=== PATIENT | female | born 1965 | race Caucasian/White ===

== ENCOUNTER 2016-12-19 05:34 | Emergency (ER) | payer MEDICAID ==
[2016-12-19] MEDS ORDERED: LEVALBUTEROL 1.25 MG INH ONE (05:41)
[2016-12-19] MEDS ORDERED: IPRATROPIUM 0.2 MG/ML NEB INH ONE (05:41)
--- NOTE | 2016-12-19 05:46 | ED Physician Documentation ---
PD HPI DYSPNEA - Stated complaint Stated Complaint: DIFF BREATHING - History obtained from History obtained from: Patient - History of Present Illness Timing - onset: How many days ago (2 months, but significantly worse past 2 days ) Timing - details: Intermittant, Waxing and waning Pain level max: 0 Pain level now: 0 Inciting event(s): URI Improved by: Rest Worsened by: Exertion, Coughing Associated symptoms: Cough, Wheezing. 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 HEENT: None Musculoskeletal: Osteoarthritis, Chronic back pain Derm: None - Past Surgical History Past Surgical History: Yes /NUCLEAR CHEMISTRY TECHNICIAN: Oophrectomy - Present Medications Home Medications: Ambulatory Orders Medication Instructions Recorded Confirmed Albuterol [Ventolin Hfa] 2 puffs IH Q4HR PRN 03/13/13 12/19/16 Albuterol Sulfate [Proair Hfa 2 puffs IH Q4HR PRN 12/19/16 12/19/16 Inhaler] Prednisone 40 mg PO DAILY 4 Days 12/19/16 - Allergies Allergies/Adverse Reactions: Allergies Allergy/AdvReac Type Severity Reaction Status Date / Time No Known Drug Allergies Allergy Verified 12/19/16 05:41 - Social History Does the pt smoke?: Yes Smoking Status: Current every day smoker Does the pt drink ETOH?: No Does the pt have substance abuse?: No - Immunizations Immunizations are current?: No Immunizations: TDAP >10years/unknown - POLST Patient has POLST: No PD ED PE NORMAL - Vitals Vital signs reviewed: Yes - General General: Alert and oriented X 3, Well developed/nourished, Other (mild-moderate respiratory distress (abbreviated sentences, accessory muscles, tachypneic)) - Cardiac Cardiac: No murmur, Other (regular rhythm, mildly tachycardic rate) - Extremities Extremities: No edema PD ED PE EXPANDED - Respiratory Respiratory: Wheezing, Decreased breath sounds Results - Vitals Vitals: Vital Signs - 24 hr 12/19/16 12/19/16 12/19/16 05:35 05:44 05:50 Temperature 36.8 C Heart Rate 106 H 92 101 H Respiratory 30 H 18 19 Rate Blood Pressure 155/98 H 139/82 H O2 Saturation 88 L 100 12/19/16 12/19/16 12/19/16 05:55 06:00 06:40 Temperature Heart Rate 90 98 82 Respiratory 21 20 21 Rate Blood Pressure 139/82 H 137/84 H 121/77 O2 Saturation 100 97 96 12/19/16 07:17 Temperature Heart Rate 90 Respiratory 18 Rate Blood Pressure 118/77 O2 Saturation 92 Oxygen O2 Source Room air Oxygen Flow Rate 2 - EKG (time done) No standard instances Rate: Rate (enter#) (103), Tachy Rhythm: Sinus tachycardia [place]: Normal Intervals: Normal [place] QRS: Normal Ischemia: Normal ST segments Other comments: Other comments (artifact noted in multiple leads) - Rads (name of study) chest xray Radiology: Prelim report reviewed, See rad report PD MEDICAL DECISION MAKING - ED course Complexity details: reviewed old records, reviewed results, re-evaluated patient , considered differential, d/w patient ED course: after first breathing treatment (xopenex X 3 doses, atrovent x 1 dose, all given in one treatment), reexam reveals improved aeration, persistent but slightly decreased wheezing (was throughout expiratory phase, now mid/end expiratory, and no longer with decreased breath sounds). Given duoneb, and on reevaluation, only end-expiratory wheezing heard with good aeration. She is lower 90s pulse ox on room air and is comfortable with discharge home. Given 60mg PO prednisone during ED stay, rx for 4 days prednisone 40mg QD. Departure - Departure Disposition: 01 Home, Self Care Clinical Impression: Asthma Condition: Good Instructions: ED Reactive Airway Disease Follow-Up: Shaquille Lamas MD [Primary Care Provider] - Within 3 Days Prescriptions: Prednisone 40 mg PO DAILY 4 Days Discharge Date/Time: 12/19/16 07:34
[2016-12-19] MEDS ORDERED: LEVALBUTEROL 1.25 MG INH STA (05:49)
[2016-12-19] MEDS ORDERED: IPRATROPIUM 0.2 MG/ML NEB INH STA (05:50)
[2016-12-19] MEDS ORDERED: predniSONE 20 MG TABLET PO STA (05:51)
[2016-12-19] MEDS ORDERED: predniSONE 20 MG TABLET ONE (05:58)
[2016-12-19] MEDS ORDERED: IPRATROPIUM/ALBUTEROL 3 ML NEB INH STA (06:33)
--- NOTE | 2016-12-19 06:38 | XRAY Preliminary Report ---
Exam: XR Chest 2 View PA/LAT IMPRESSION: Stable appearance of the chest without acute cardiopulmonary abnormality. [facility] SITE ID: [id number]
[2016-12-19] MEDS ORDERED: IPRATROPIUM/ALBUTEROL 3 ML NEB INH ONE (06:41)
--- NOTE | 2016-12-19 06:41 | XRAY Report ---
EXAM: CHEST RADIOGRAPHY EXAM DATE: 12/19/2016 06:21 AM. CLINICAL HISTORY: Dyspnea, cough. Shortness of breath for 2 days. COMPARISON: 03/27/2013. TECHNIQUE: 2 views. FINDINGS: Lungs/Pleura: No focal opacities evident. No pleural effusion. No pneumothorax. Normal volumes. Mediastinum: Heart and mediastinal contours are unremarkable. Other: Multilevel degenerative changes noted in the spine. IMPRESSION: Stable appearance of the chest without acute cardiopulmonary abnormality. [facility] Referring Provider Line: [phone] SITE ID: [id number]
[2016-12-19 07:18] VITALS: BP 118/77
== END 2016-12-19 07:34 | disposition home or self-care (01) ==
LOC: ED 05:34
DX: J45.909 Unspecified asthma, uncomplicated (principal); F17.200 Nicotine dependence, unspecified, uncomplicated
CPT/HCPCS: 71020; 93005; 93010; 94640; 94664; 99284; A9270; J7512; J7620

== ENCOUNTER 2017-03-28 21:56 | Emergency (ER) | payer MEDICAID ==
[2017-03-28 22:07] VITALS: BP 119/79
[2017-03-28] MEDS ORDERED: SULFAMETH/TRIMETH DS 800/160 MG TABLET PO STA (22:29)
[2017-03-28] MEDS ORDERED: cefTRIAXone 1 GM VIAL IM STA (22:29)
--- NOTE | 2017-03-28 22:32 | ED Physician Documentation ---
History of Present Illness - Stated complaint Stated Complaint: HAND PX - Chief complaint Chief Complaint: Ext Problem - History obtained from History obtained from: Patient - History of Present Illness Timing: How many days ago (4) Pain level max: 2 Pain level now: 1 - Additonal information Additional information: Patient states approximately 1 week ago she was working in the garden removing scrubs and noticed some few small puncture wounds to the hand, since that time she said she had been doing well, but the hand started to turn red yesterday and then had streaking up the arm today. Came in for evaluation. Nothing improves his symptoms. Nothing worsens the symptoms. 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 - Present Medications Home Medications: Ambulatory Orders Medication Instructions Recorded Confirmed Albuterol [Ventolin Hfa] 2 puffs IH Q4HR PRN 03/13/13 03/28/17 Albuterol Sulfate [Proair Hfa 2 puffs IH Q4HR PRN 12/19/16 03/28/17 Inhaler] Cephalexin [Keflex] 500 mg PO Q6H #28 capsule 03/28/17 Sulfamethox/Trimeth 800/160 1 each PO BID #14 tablet 03/28/17 [Bactrim Ds 800/160] - Allergies Allergies/Adverse Reactions: Allergies Allergy/AdvReac Type Severity Reaction Status Date / Time No Known Drug Allergies Allergy Verified 03/28/17 22:07 - Social History Does the pt smoke?: Yes Smoking Status: Current every day smoker Does the pt drink ETOH?: No Does the pt have substance abuse?: No - Immunizations Immunizations are current?: No Immunizations: TDAP >10years/unknown - POLST Patient has POLST: No PD ED PE NORMAL - Vitals Vital signs reviewed: Yes - General General: Alert and oriented X 3, No acute distress - Derm Derm: Warm and dry - Extremities Extremities: Other (R hand - Slight erythematous streak from the webspace between the thumb and index finger of the right hand to approximately two thirds of the distance of the right forearm. No abscess. No visible foreign bodies. No drainage. Neurovascularly intact) - Neuro Neuro: Alert and oriented X 3 - Psych Psych: Normal mood, Normal affect Results - Vitals Vitals: Vital Signs - 24 hr 03/28/17 22:04 Temperature 36.7 C Heart Rate 107 H Respiratory 16 Rate Blood Pressure 119/79 O2 Saturation 100 Oxygen O2 Source Room air PD MEDICAL DECISION MAKING - ED course Complexity details: considered differential, d/w patient ED course: Patient is a 51-year-old female with cellulitis of the right hand. Will place on antibiotics and see how she progresses. No evidence of foreign body. No drainable abscess. No fevers. Nontoxic. Well-appearing. Patient counseled regarding signs and symptoms for which I believe and urgent re-evaluation would be necessary. Patient with good understanding of and agreement to plan and is comfortable going home at this time This document was made in part using voice recognition software. While efforts are made to proofread this document, sound alike and grammatical errors may occur. Patient was given a dose of Rocephin here and placed on oral Bactrim here as well. Departure - Departure Disposition: 01 Home, Self Care Clinical Impression: Cellulitis Qualifiers: Site of cellulitis: extremity Site of cellulitis of extremity: upper extremity Laterality: right Qualified Code(s): L03.113 - Cellulitis of right upper limb Condition: Good Instructions: ED Infec Skin Cellulitis Follow-Up: Shaquille Lamas MD [Primary Care Provider] - Within 3 Days (for wound check ) Prescriptions: Sulfamethox/Trimeth 800/160 [Bactrim Ds 800/160] 1 each PO BID #14 tablet Cephalexin [Keflex] 500 mg PO Q6H #28 capsule Comments: Take all antibiotics until gone. Return if you worsen. Make sure to follow up with your doctor for repeat evaluation in 3 days. Discharge Date/Time: 03/28/17 22:46
[2017-03-28] MEDS ORDERED: cefTRIAXone 1 GM VIAL ONE (22:36)
[2017-03-28] MEDS ORDERED: SULFAMETH/TRIMETH DS 800/160 MG TABLET PO ONE (22:36)
[2017-03-28] MEDS ORDERED: LIDOCAINE 1% 2 ML VIAL ONE (22:36)
== END 2017-03-28 22:46 | disposition home or self-care (01) ==
LOC: ED 21:56
DX: L03.113 Cellulitis of right upper limb (principal); F17.200 Nicotine dependence, unspecified, uncomplicated
CPT/HCPCS: 96372; 99283; A9270

== ENCOUNTER 2017-12-09 05:36 | Inpatient (IN) | payer MEDICAID ==
[2017-12-09] MEDS ORDERED: IPRATROPIUM/ALBUTEROL 3 ML NEB INH STA (05:44)
[2017-12-09] MEDS ORDERED: methylPREDNISolone SUCCINATE 125 MG/2 ML VIAL IVP STA (05:44)
[2017-12-09] MEDS ORDERED: MAGNESIUM SULFATE 2 GRAM 2 GM/50 ML BAG IV ONE (05:44)
[2017-12-09] MEDS ORDERED: TERBUTALINE 1 MG/ML VIAL SUBQ STA (05:50)
[2017-12-09] MEDS ORDERED: IPRATROPIUM/ALBUTEROL 3 ML NEB INH ONE (05:53)
[2017-12-09] MEDS ORDERED: PROCHLORPERAZINE 10 MG/2 ML VIAL IVP PRN (05:55)
[2017-12-09] MEDS ORDERED: oxyCODONE 5 MG TABLET PO PRN (05:55)
[2017-12-09] MEDS ORDERED: ACETAMINOPHEN 325 MG TABLET PO PRN (05:55)
[2017-12-09] MEDS ORDERED: ZOLPIDEM 5 MG TABLET PO PRN (05:55)
[2017-12-09] MEDS ORDERED: ONDANSETRON 4 MG/2 ML VIAL IVP PRN (05:55)
[2017-12-09 06:06] LABS: BASOPHILS # (AUTO) 0.1 10^3/uL (0.0-0.1); BASOPHILS % (AUTO) 1.1 %; EOSINOPHILS # (AUTO) 0.3 10^3/uL (0.0-0.7); EOSINOPHILS % (AUTO) 2.8 %; HGB - HEMOGLOBIN 15.7 g/dL (12.0-16.0); LYMPHOCYTES # (AUTO) 3.8 10^3/uL (1.5-3.5); LYMPHOCYTES % (AUTO) 40.2 %; MEAN CORPUSCULAR HEMOGLOBIN 30.3 pg (27.0-31.0); MEAN CORPUSCULAR HGB CONC 32.5 g/dL (32.0-36.0); MEAN CORPUSCULAR VOLUME 93.1 fL (81.0-99.0); MONOCYTES # (AUTO) 0.7 10^3/uL (0.0-1.0); MONOCYTES % (AUTO) 7.9 %; NEUTROPHILS # (AUTO) 4.5 10^3/uL (1.5-6.6); PLT - PLATELET COUNT 398 10^3/uL (130-450); RED BLOOD COUNT 5.18 10^6/uL (4.20-5.40); RED CELL DISTRIBUTION WIDTH 13.2 % (12.0-15.0); WHITE BLOOD COUNT 9.4 x10^3/uL (4.8-10.8)
[2017-12-09 06:10] LABS: ALBUMIN 4.4 g/dL (3.2-5.5); ALBUMIN/GLOBULIN RATIO 1.3 (1.0-2.2); ALKALINE PHOSPHATASE 81 IU/L (42-121); ALT ALANINE AMINOTRANSFERASE 22 IU/L (10-60); AST ASPARTATE AMINOTRANSFERASE 22 IU/L (10-42); BILIRUBIN,TOTAL 1.2 mg/dL (0.2-1.0); BUN - BLOOD UREA NITROGEN 12 mg/dL (6-20); CALCIUM 8.8 mg/dL (8.5-10.3); CARBON DIOXIDE - CO2 28 mmol/L (21-32); CHLORIDE 100 mmol/L (101-111); CREATININE 0.8 mg/dL (0.4-1.0); GFR - MDRD 75 (>89); GLUCOSE 310 mg/dL (70-100); LIPASE 19 U/L (22-51); SODIUM 134 mmol/L (135-145); TOTAL PROTEIN 7.9 g/dL (6.7-8.2)
[2017-12-09] MEDS ORDERED: ALBUTEROL NEB 2.5 MG/3 ML INH STA (06:10)
--- NOTE | 2017-12-09 06:11 | ED Physician Documentation ---
PD HPI DYSPNEA - Stated complaint Stated Complaint: SHORTNESS OF BREATH - Chief complaint Chief Complaint: Resp - History obtained from History obtained from: Patient, Family - History of Present Illness Timing - onset: How many weeks ago (1) Timing - details: Gradual onset Inciting event(s): Allergic rxn/anaphylaxis Improved by: O2 Associated symptoms: Cough, Wheezing Similar symptoms before: Work up / diagnostics Recently seen: Not recently seen - Additional information Additional information: Patient is a 52 year old female presenting to the emergency department for severe shortness of breath. According to patient and family the patient has had worsening shortness of breath over the last week. Patient does smoke daily but every year around the same time she has a bad allergic reaction and makes her wheeze. patient does not have any nebulizers or inhalers at home. Upon initial evaluation in the emergency department patient was ill appearing in severe respiratory distress. 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: Oophrectomy - Present Medications Home Medications: Ambulatory Orders Medication Instructions Recorded Confirmed Albuterol [Ventolin Hfa] 2 puffs IH Q4HR PRN 03/13/13 03/28/17 Albuterol Sulfate [Proair Hfa 2 puffs IH Q4HR PRN 12/19/16 03/28/17 Inhaler] Cephalexin [Keflex] 500 mg PO Q6H #28 capsule 03/28/17 Sulfamethox/Trimeth 800/160 1 each PO BID #14 tablet 03/28/17 [Bactrim Ds 800/160] - Allergies Allergies/Adverse Reactions: Allergies Allergy/AdvReac Type Severity Reaction Status Date / Time No Known Drug Allergies Allergy Verified 03/28/17 22:07 - Social History Does the pt smoke?: Yes Smoking Status: Current every day smoker Does the pt drink ETOH?: No Does the pt have substance abuse?: No - Immunizations Immunizations are current?: No Immunizations: TDAP >10years/unknown - POLST Patient has POLST: No PD ED PE NORMAL - Abdomen Abdomen: Soft - Derm Derm: Normal color, No rash - Extremities Extremities: No edema, No calf tenderness / cord - Neuro Neuro: Alert and oriented X 3 Eye Opening: Spontaneous PD ED PE EXPANDED - General General: Alert, Disheveled, poorly kept, In distress - Neck Neck: No: JVD present - Cardiac Cardiac: Tachy - Respiratory Respiratory: Labored, Gasping, Accessory mm use, Retractions, Wheezing, Decreased breath sounds, Right upper lobe, Right middle lobe, Right lower lobe, Left upper lobe, Left lower lobe Results - Vitals Vitals: Vital Signs - 24 hr 12/09/17 12/09/17 05:40 05:55 Temperature 36.2 C L Heart Rate 129 H 128 H Respiratory 25 H Rate Blood Pressure 161/104 H O2 Saturation 70 L Oxygen O2 Source Room air Oxygen Flow Rate 10 - EKG (time done) 0644 Rate: Rate (enter#) (114) Rhythm: Sinus tachycardia [place]: Normal QRS: Low voltage Compare to prior EKG: Unchanged from prior EKG - Labs Labs: Laboratory Tests 12/09/17 12/09/17 12/09/17 05:45 05:45 05:45 WBC 9.4 RBC 5.18 Hgb 15.7 Hct 48.2 H MCV 93.1 MCH 30.3 MCHC 32.5 RDW 13.2 Plt Count 398 MPV 8.0 Neut # 4.5 Lymph # 3.8 H Mccreary # 0.7 Eos # 0.3 Baso # 0.1 Absolute Nucleated RBC 0.00 Nucleated RBC % 0.0 Sodium 134 L Potassium 4.6 Chloride 100 L Carbon Dioxide 28 Anion Gap 6.0 BUN 12 Creatinine 0.8 Estimated GFR (MDRD) 75 L Glucose 310 H Calcium 8.8 Total Bilirubin 1.2 H AST 22 ALT 22 Alkaline Phosphatase 81 Troponin I < 0.04 B-Natriuretic Peptide Total Protein 7.9 Albumin 4.4 Globulin 3.5 Albumin/Globulin Ratio 1.3 Lipase 19 L Ethyl Alcohol < 5.0 Influenza A (Rapid) Influenza B (Rapid) 12/09/17 12/09/17 05:45 05:53 WBC RBC Hgb Hct MCV MCH MCHC RDW Plt Count MPV Neut # Lymph # Mccreary # Eos # Baso # Absolute Nucleated RBC Nucleated RBC % Sodium Potassium Chloride Carbon Dioxide Anion Gap BUN Creatinine Estimated GFR (MDRD) Glucose Calcium Total Bilirubin AST ALT Alkaline Phosphatase Troponin I B-Natriuretic Peptide 18 Total Protein Albumin Globulin Albumin/Globulin Ratio Lipase Ethyl Alcohol Influenza A (Rapid) Negative Influenza B (Rapid) Negative - Rads (name of study) chest x-ray Radiology: Final report received (no acute disease process) PD MEDICAL DECISION MAKING - ED course Complexity details: reviewed old records, reviewed results, re-evaluated patient , considered differential, d/w patient, d/w family, d/w home care consultant ED course: Patient was seen immediately at bedside. Patient was placed on a monitor and was hypoxic in the 70s. patient was immediately started on 3 duonebs treatments. IV access was gained and labs were drawn. Patient was treated with solumedrol, magnesium and terbutaline. chest x-ray was performed and showed no acute abnormalities. Respiratory was contacted and patient was placed on bipap with inline nebs. Patient improved on the bipap. Hospitalist was contacted and he came to evaluate the patient. Patient was accepted by him and patient was admitted for further care. Departure - Departure Disposition: [facility] DC/Xfer Clinical Impression: Asthma, Respiratory failure Condition: Critical Discharge Date/Time: 12/09/17 06:59
--- NOTE | 2017-12-09 06:16 | XRAY Preliminary Report ---
Exam: XR CHEST 1 VIEW X-RAY IMPRESSION: Stable appearance of the chest without acute cardiopulmonary abnormality. [facility] SITE ID: [id number]
--- NOTE | 2017-12-09 06:16 | XRAY Report ---
EXAM: CHEST RADIOGRAPHY EXAM DATE: 12/09/2017 05:58 AM. CLINICAL HISTORY: Shortness of breath and wheezing COMPARISON: 12/19/2016, 03/27/2013. TECHNIQUE: 1 view. FINDINGS: Lungs/Pleura: No focal opacities evident. No pleural effusion. No pneumothorax. Mediastinum: Within exam limitations, the cardiomediastinal contour is normal. Other: None. IMPRESSION: Stable appearance of the chest without acute cardiopulmonary abnormality. [facility] Referring Provider Line: [phone] SITE ID: [id number]
--- NOTE | 2017-12-09 06:49 | HISTORY & PHYSICAL EXAMINATION ---
Chief Complaint - Chief Complaint Chief Complaint: Shortness of breath History of Present Illness - Admitted From Admitted From:: Emergency department - History Obtained From Records Reviewed: Yes History obtained from: Patient Exam Limitations: Patient on BiPAP and in respiratory distress - History of Present Illness HPI Comment/Other: Patient is a 52-year-old female with a past medical history significant for seasonal allergies and allergy induced asthma who presented to the emergency department with a chief complaint of shortness of breath. The patient states that her symptoms started about 1 week ago. She states that when the season changes around this time of the year she usually has asthma exacerbations which require her to come to the emergency department for treatment and usually she is released home after a few hours. She states that symptoms started with increasing shortness of air and she was having to use her inhaler more frequently. She states that she likes to be in the outdoors and has been spending a lot of time outside over the last week as the weather has been nice. She states that she had a couple of episodes over the last week where she felt that she almost had to go to the emergency department but decided against it. She states that she has been having wheezing and a dry cough along with increasing shortness of air. She states usually when she takes her inhaler she is able to get the breathing controlled to a point where she does not need to come to the emergency department. She states that over the last 2 nights it has been especially bad and tonight her shortness of breath was severe. She states that despite using a number of nebulizer treatments she could not catch her breath. She states that at rest she was unable to maintain a conversation. She states that initially she had wheezing and then she states that she just could not breathe. She denies any chest pain, palpitations, orthopnea, PND, increased lower extremity swelling, fevers or chills. The patient denies any headaches, blurred vision, runny nose, sore throat, nasal congestion, difficulty swallowing, abdominal pain, nausea, vomiting, diarrhea, constipation, urinary urgency, urinary frequency, dysuria, joint pain , muscle aches, back pain, neck stiffness, skin rash, hair loss, changes in her appetite, recent unintentional weight loss, night sweats, or any focal neurologic deficits. On presentation to the emergency department the patient was in severe respiratory distress. The patient came in by private vehicle with her boyfriend. As soon as she got into the emergency department she was very tachypneic and on the monitor she was found to have an oxygen saturation of 70% , she was tachycardic, hypertensive and very tachypneic. The patient was put onto BiPAP right away as she appeared as though she may need intubation. The patient was given back to back nebulizer treatments and IV steroids with which the patient began to stabilize. The patient was admitted to the intensive care unit for acute respiratory failure with hypoxia secondary to asthma exacerbation. The patient's lab work was all within normal limits. The patient had no leukocytosis and troponin was negative. Patient's BNP was 18. The patient's influenza swab was negative. The patient's chest x-ray did not show any evidence of pneumonia. History - Past Medical History Cardiovascular: reports: None Respiratory: reports: Asthma Endocrine/Autoimmune: reports: None GI: reports: Diverticulitis INORGANIC CHEMICAL TECHNICIAN: reports: None HEENT: reports: None Musculoskeletal: reports: Osteoarthritis, Chronic back pain Derm: reports: None MRSA Hx?: No Other Past Medical History: Gestational diabetes - Past Surgical History /INORGANIC CHEMICAL TECHNICIAN: reports: Oophrectomy - Family & Social History Family History: Mother: Alive and Well, Father: (Lung cancer), Cancer, Other family: Diabetes, Type 2 (Grandmother) Living arrangement: At home Living Situation: With spouse/s.o. Social History Notes: The patient lives in [place] with her boyfriend. She has 2 children. She is originally from [place] and moved up here a number of years ago. The patient continues to smoke half a pack a day she has been smoking since her teens. She does not drink alcohol or use any illicit drugs. - Substance History Use: Uses substance without health or social issues: Tobacco - POLST Patient has POLST: No POLST Status: Full Code Meds/Allgy - Home Medications Home Medications: Ambulatory Orders Medication Instructions Recorded Confirmed Albuterol [Ventolin Hfa] 2 puffs IH Q4HR PRN 03/13/13 03/28/17 Albuterol Sulfate [Proair Hfa 2 puffs IH Q4HR PRN 12/19/16 03/28/17 Inhaler] Cephalexin [Keflex] 500 mg PO Q6H #28 capsule 03/28/17 Sulfamethox/Trimeth 800/160 1 each PO BID #14 tablet 03/28/17 [Bactrim Ds 800/160] - Allergies Allergies/Adverse Reactions: Allergies Allergy/AdvReac Type Severity Reaction Status Date / Time No Known Drug Allergies Allergy Verified 03/28/17 22:07 Review of Systems - Other Findings Other Findings: A comprehensive review of systems was performed the pertinent positives and negatives are stated above in the HPI and the remainder of the review of systems is negative. Exam - Vital Signs Reviewed Vital Signs: Yes Vital Signs: Vital Signs x48h Pulse Resp BP Pulse Ox 12/09/17 06:40 122 H 12/09/17 06:34 121 H 28 H 137/81 H 97 12/09/17 06:00 128 H 22 155/86 H 98 - Physical Exam General Appearance: positive: Moderate distress (Patient on BiPAP has conversational dyspnea and using accessory muscles of breathing) Eyes Bilateral: positive: Normal inspection, PERRL, EOMI, No lid inflammation, Conjunctivae nml, No scleral icterus ENT: positive: ENT inspection nml, Pharynx nml, No signs of dehydration. negative: Purulent nasal drainage, Pharyngeal erythema, Oral lesions Neck: positive: Nml inspection, Thyroid nml, No JVD, Trachea midline. negative : Thyromegaly, Lymphadenopathy (R), Lymphadenopathy (L), Stiff neck, Carotid bruit, Tracheal deviation Respiratory: positive: Chest non-tender, Wheezes (Diffuse), Other (Decreased breath sounds, tight lungs, moderate respiratory distress, use of accessory muscles of breathing, conversational dyspnea) Cardiovascular: positive: No murmur, No gallop, Tachycardia Peripheral Pulses: positive: 2+ Abdomen: positive: Non-tender, No organomegaly, Nml bowel sounds, No distention. negative: Guarding, Rebound, Hepatomegaly Back: positive: Nml inspection. negative: CVA tenderness (R), CVA tenderness (L ) Skin: positive: Color nml, No rash, Warm. negative: Diaphoresis, Pallor, Skin rash Extremities: positive: Non-tender, Full ROM, Nml appearance, No pedal edema Neurologic/Psychiatric: positive: Oriented x3, CN's nml (2-12), Motor nml, Sensation nml, Mood/affect nml Conclusion/Plan - Problem List (1) Acute respiratory failure with hypoxia Conclusion/Plan: Patient presented with shortness of breath for about 1 week with a dry cough and wheezing. Patient's symptoms were progressively worsening over the week to a point where she had severe shortness of breath prior to presenting into the emergency department. On presentation the patient had hypoxia with oxygen saturation of 70% and was in severe respiratory distress. Patient has history of allergic asthma and appears to have asthma exacerbation which led to acute respiratory failure with hypoxia. Patient required BiPAP in the emergency department and is maintained on BiPAP and being admitted to the intensive care unit. Plan: Admit to the ICU BiPAP Nebs around the clock and as needed IV Solu-Medrol every 6 hours IV Levaquin Monitor closely (2) Asthma exacerbation Conclusion/Plan: Patient has history of allergic asthma. She usually has a bad exacerbation around this time of the year. Typically she does not require hospitalization and only requires a visit to the emergency department. This time patient's symptoms started about 1 week ago and has been progressively worsening. She finally came in today and was in severe respiratory distress requiring BiPAP in the emergency department. She had an oxygen saturation of only 70% on presentation. Plan: Nebs around the clock 24 hours Nebs as needed every 4 hours IV Solu-Medrol every 6 hours IV Levaquin BiPAP Wean off BiPAP Qualifiers: Asthma severity: unspecified severity Asthma persistence: intermittent Qualified Code(s): J45.21 - Mild intermittent asthma with (acute) exacerbation (3) Tobacco abuse Conclusion/Plan: Patient has history of tobacco abuse and smokes half a pack per day. Patient was advised to quit smoking and offered a nicotine patch. (4) Hyperglycemia Conclusion/Plan: The patient presents with significant hyperglycemia as she has a glucose of 300 on her blood chemistry. This may have been after she got a dose of IV steroids which may have caused the glucose to be significantly elevated. This is however of concern given the level of elevation in her blood glucose. We will check a hemoglobin A1c and continue to monitor her blood sugars. If her A1c is elevated we will place her on sliding scale insulin. The patient is going to be on steroids which may worsen her hyperglycemia. - Lab Results Lab results reviewed: Yes Fish Bones: 12/09/17 05:45 12/09/17 05:45 Other Lab Results: Laboratory Results WBC 9.4 x10^3/uL (4.8-10.8) 12/09/17 05:45 RBC 5.18 10^6/uL (4.20-5.40) 12/09/17 05:45 Hgb 15.7 g/dL (12.0-16.0) 12/09/17 05:45 Hct 48.2 % (37.0-47.0) H 12/09/17 05:45 MCV 93.1 fL (81.0-99.0) 12/09/17 05:45 MCH 30.3 pg (27.0-31.0) 12/09/17 05:45 MCHC 32.5 g/dL (32.0-36.0) 12/09/17 05:45 RDW 13.2 % (12.0-15.0) 12/09/17 05:45 Plt Count 398 10^3/uL (130-450) 12/09/17 05:45 MPV 8.0 fL (7.9-10.8) 12/09/17 05:45 Neut # 4.5 10^3/uL (1.5-6.6) 12/09/17 05:45 Lymph # 3.8 10^3/uL (1.5-3.5) H 12/09/17 05:45 Benson # 0.7 10^3/uL (0.0-1.0) 12/09/17 05:45 Eos # 0.3 10^3/uL (0.0-0.7) 12/09/17 05:45 Baso # 0.1 10^3/uL (0.0-0.1) 12/09/17 05:45 Absolute Nucleated RBC 0.00 x10^3/uL 12/09/17 05:45 Nucleated RBC % 0.0 /100WBC 12/09/17 05:45 Sodium 134 mmol/L (135-145) L 12/09/17 05:45 Potassium 4.6 mmol/L (3.5-5.0) 12/09/17 05:45 Chloride 100 mmol/L (101-111) L 12/09/17 05:45 Carbon Dioxide 28 mmol/L (21-32) 12/09/17 05:45 Anion Gap 6.0 (6-13) 12/09/17 05:45 BUN 12 mg/dL (6-20) 12/09/17 05:45 Creatinine 0.8 mg/dL (0.4-1.0) 12/09/17 05:45 Estimated GFR (MDRD) 75 (>89) L 12/09/17 05:45 Glucose 310 mg/dL (70-100) H 12/09/17 05:45 Calcium 8.8 mg/dL (8.5-10.3) 12/09/17 05:45 Total Bilirubin 1.2 mg/dL (0.2-1.0) H 12/09/17 05:45 AST 22 IU/L (10-42) 12/09/17 05:45 ALT 22 IU/L (10-60) 12/09/17 05:45 Alkaline Phosphatase 81 IU/L (42-121) 12/09/17 05:45 Troponin I < 0.04 ng/mL (<0.49) 12/09/17 05:45 B-Natriuretic Peptide 18 pg/mL (5-100) 12/09/17 05:45 Total Protein 7.9 g/dL (6.7-8.2) 12/09/17 05:45 Albumin 4.4 g/dL (3.2-5.5) 12/09/17 05:45 Globulin 3.5 g/dL (2.1-4.2) 12/09/17 05:45 Albumin/Globulin Ratio 1.3 (1.0-2.2) 12/09/17 05:45 Lipase 19 U/L (22-51) L 12/09/17 05:45 Ethyl Alcohol < 5.0 mg/dL 12/09/17 05:45 Influenza A (Rapid) Negative (Negative) 12/09/17 05:53 Influenza B (Rapid) Negative (Negative) 12/09/17 05:53 - Diagnostic Imaging Results Diagnostic Imaging Results: positive: Final report reviewed Diagnostic Imaging Results Comments: Chest x-ray Impression: Stable appearance of the chest without acute cardiopulmonary abnormality. Core Measures - Anticipated LOS I expect patient to be DC'd or transferred within 96 hours.: Yes - DVT/VTE - Prophylaxis VTE/DVT Prophylaxis med ordered at admit?: Yes
[2017-12-09 07:44] LABS: HB2 TOTAL 17.2 g/dL; HEMOGLOBIN A1C 0.77 g/dL; HEMOGLOBIN A1C % 6.2 % (4.6-6.2)
[2017-12-09] MEDS: methylPREDNISolone SUCCINATE 40 MG/ML VIAL IVP SCH ×3 (07:58→18:47)
[2017-12-09 08:45] LABS: ABG BASE EXCESS -2.7 mmol/L (-2.0-3.0); ABG HCO3 22.9 mmol/L (22.0-26.0); ABG OXYGEN SATURATION 99 % (94-98); ABG PCO2 43 mmHg (34-45); ABG PH 7.35 (7.35-7.45); ABG TCO2 24.3 MMOL/L (21.0-29.0)
[2017-12-09 08:49] LABS: ABG PO2 187 mmHg (80-100)
[2017-12-09] MEDS: FEXOFENADINE 60 MG TABLET PO SCH ×2 (10:01→10:06)
[2017-12-09] MEDS: ENOXAPARIN 40 MG/0.4 ML SYRINGE SUBQ SCH (10:01)
[2017-12-09] MEDS: CHLORHEXIDINE GLUCONATE 15 ML UDC PO SCH ×3 (10:01→21:45)
[2017-12-09] MEDS: PANTOPRAZOLE 40 MG VIAL IVP SCH (10:01)
[2017-12-09] MEDS: NICOTINE 14 MG PATCH TOP SCH ×2 (10:01→10:06)
[2017-12-09] MEDS: SACCHAROMYCES BOULARDII 250 MG CAPSULE PO SCH ×2 (10:01→17:22)
[2017-12-09] MEDS: levoFLOXacin 250 MG TABLET PO SCH (10:02)
[2017-12-09] MEDS: SODIUM CHLORIDE FLUSH 0.9% 10 ML SYRINGE IVP SCH ×3 (10:02→19:47)
[2017-12-09] MEDS: IPRATROPIUM/ALBUTEROL 3 ML NEB INH SCH ×3 (11:00→20:10)
[2017-12-09] MEDS: SODIUM CHLORIDE FLUSH 0.9% 10 ML SYRINGE IVP PRN ×2 (12:04→18:47)
[2017-12-09 17:14] LABS: BILIRUBIN,URINE NEGATIVE (NEGATIVE); CLARITY,URINE CLEAR (CLEAR); GLUCOSE, URINE (UA) NEGATIVE (NEGATIVE); KETONES,URINE (UA) NEGATIVE (NEGATIVE); LEUKOCYTE ESTERASE, URINE NEGATIVE (NEGATIVE); NITRITE,URINE NEGATIVE (NEGATIVE); OCCULT BLOOD,URINE NEGATIVE (NEGATIVE); PH,URINE 5.5 PH (5.0-7.5); PROTEIN,URINE NEGATIVE (NEGATIVE); UROBILINOGEN,URINE 0.2 (NORMAL) E.U./dL (NORMAL)
[2017-12-09] MEDS: guaiFENesin/CODEINE 5 ML UDC PO PRN (21:46)
[2017-12-10] MEDS: methylPREDNISolone SUCCINATE 40 MG/ML VIAL IVP SCH ×3 (00:04→12:18)
[2017-12-10] MEDS: IPRATROPIUM/ALBUTEROL 3 ML NEB INH SCH ×4 (00:04→19:15)
[2017-12-10] MEDS: SODIUM CHLORIDE FLUSH 0.9% 10 ML SYRINGE IVP SCH ×4 (00:04→17:06)
[2017-12-10 04:54] LABS: BASOPHILS % (AUTO) 0.1 %; HGB - HEMOGLOBIN 14.5 g/dL (12.0-16.0); LYMPHOCYTES % (AUTO) 7.6 %; MEAN CORPUSCULAR HEMOGLOBIN 30.1 pg (27.0-31.0); MEAN CORPUSCULAR HGB CONC 32.6 g/dL (32.0-36.0); MEAN CORPUSCULAR VOLUME 92.5 fL (81.0-99.0); MEAN PLATELET VOLUME 7.9 fL (7.9-10.8); MONOCYTES # (AUTO) 0.3 10^3/uL (0.0-1.0); MONOCYTES % (AUTO) 2.4 %; NEUTROPHILS # (AUTO) 12.2 10^3/uL (1.5-6.6); NEUTROPHILS % (AUTO) 89.9 %; PLT - PLATELET COUNT 358 10^3/uL (130-450); RED BLOOD COUNT 4.83 10^6/uL (4.20-5.40); WHITE BLOOD COUNT 13.5 x10^3/uL (4.8-10.8)
[2017-12-10 05:06] LABS: ALBUMIN 4.1 g/dL (3.2-5.5); ALBUMIN/GLOBULIN RATIO 1.2 (1.0-2.2); CALCIUM 9.2 mg/dL (8.5-10.3); CREATININE 0.7 mg/dL (0.4-1.0); MAGNESIUM 2.3 mg/dL (1.7-2.8); PHOSPHORUS 2.8 mg/dL (2.5-4.6); TOTAL PROTEIN 7.4 g/dL (6.7-8.2)
[2017-12-10] MEDS: PANTOPRAZOLE 40 MG VIAL IVP SCH (06:12)
[2017-12-10] MEDS: SODIUM CHLORIDE FLUSH 0.9% 10 ML SYRINGE IVP PRN ×5 (06:12→21:06)
[2017-12-10] MEDS: MORPHINE 2 MG/ML SYRINGE IVP PRN ×2 (06:30→14:58)
[2017-12-10] MEDS: LORazepam 2 MG/ML VIAL IVP PRN ×2 (06:49→10:38)
[2017-12-10] MEDS ORDERED: LORazepam 2 MG/ML VIAL ONE (06:51)
[2017-12-10 07:25] LABS: ABG BASE EXCESS -2.3 mmol/L (-2.0-3.0); ABG HCO3 23.5 mmol/L (22.0-26.0); ABG OXYGEN SATURATION 94 % (94-98); ABG PCO2 44 mmHg (34-45); ABG PH 7.34 (7.35-7.45); ABG PO2 73 mmHg (80-100); ABG TCO2 24.9 MMOL/L (21.0-29.0)
[2017-12-10] MEDS: FEXOFENADINE 60 MG TABLET PO SCH (09:56)
[2017-12-10] MEDS: CHLORHEXIDINE GLUCONATE 15 ML UDC PO SCH ×2 (09:56→20:08)
[2017-12-10] MEDS: levoFLOXacin 250 MG TABLET PO SCH (09:56)
[2017-12-10] MEDS: SACCHAROMYCES BOULARDII 250 MG CAPSULE PO SCH ×2 (09:56→17:21)
[2017-12-10] MEDS: ENOXAPARIN 40 MG/0.4 ML SYRINGE SUBQ SCH (09:58)
[2017-12-10] MEDS: NICOTINE 14 MG PATCH TOP SCH (09:59)
[2017-12-10] MEDS: IPRATROPIUM/ALBUTEROL 3 ML NEB INH PRN (10:32)
--- NOTE | 2017-12-10 14:47 | PROVIDER PROGRESS NOTE ---
Subjective - Prog Note Date Prog Note Date: 12/10/17 Prog Note Time: 14:44 - Subjective Pt reports feeling: Worse Subjective: I had seen her yesterday afternoon, and in the evening right before I left my 12 hour shift. BiPAP had come off, and she was sitting up in a chair eating her late lunch and dinner on both occasions. She was feeling better, even though she was still coughing a bit. This morning she got up to go to the bathroom, became increasingly short of breath with the effort, started coughing and developed severe shortness of breath and got put back on BiPAP. Over the course of the morning and into the afternoon she continues to have minimal reserve. Dyspnea on exertion and wheezing increase with minimal activity. Just to take off her mask to take her oral medications results in desaturation into the 70s. She is otherwise alert, has no new complaints. I spoke to her . He says that she usually gets really sick this time of year because of the Scotch broom and her allergies. She is usually seen in the emergency room, responds quickly to nebulizers and then can go home. This is the first time she has had to be admitted to the hospital for asthma. Current Medications - Current Medications Current Medications: Active Medications Acetaminophen (Tylenol) 650 mg PO Q4HR PRN PRN Reason: Pain 1 to 4 Albuterol/Ipratropium (Duoneb) 3 ml INH RTQ4H PRN PRN Reason: Wheezing Last Admin: 12/10/17 10:32 Dose: 3 ml Albuterol/Ipratropium (Duoneb) 3 ml INH RTQ6H [facility] Last Admin: 12/10/17 13:18 Dose: 3 ml Chlorhexidine Gluconate (Peridex) 15 ml PO BID [facility] Last Admin: 12/10/17 09:56 Dose: 15 ml Enoxaparin Sodium (Lovenox) 40 mg SUBQ DAILY [facility] Last Admin: 12/10/17 09:58 Dose: 40 mg Fexofenadine HCl (Tosin) 60 mg PO DAILY [facility] Last Admin: 12/10/17 09:56 Dose: 60 mg Guaifenesin/Codeine Phosphate (Robitussin Ac) 5 ml PO Q6HR PRN PRN Reason: Cough Last Admin: 12/09/17 21:46 Dose: 5 ml Levofloxacin (Levaquin) 750 mg PO DAILY [facility] Last Admin: 12/10/17 09:56 Dose: 750 mg Lorazepam (Ativan) 0.5 mg PO Q2HR PRN PRN Reason: Anxiety Lorazepam (Ativan Inj (Vial)) 0.5 mg IVP Q2H PRN PRN Reason: Anxiety Last Admin: 12/10/17 10:38 Dose: 0.5 mg Methylprednisolone (Solu-Medrol (40mg Vial)) 40 mg IVP Q6HR [facility] Last Admin: 12/10/17 12:18 Dose: 40 mg Morphine Sulfate (Morphine) 2 mg IVP Q2H PRN PRN Reason: Pain 8 to 10 Last Admin: 12/10/17 06:30 Dose: 2 mg Nicotine (Nicoderm) 1 patch TOP DAILY [facility] Last Admin: 12/10/17 09:59 Dose: Not Given Ondansetron HCl (Zofran Inj) 4 mg IVP Q6HR PRN PRN Reason: Nausea / Vomiting Oxycodone HCl (Roxicodone) 5 mg PO Q4HR PRN PRN Reason: Pain 5 to 7 Pantoprazole Sodium (Protonix) 40 mg IVP QDAC [facility] Last Admin: 12/10/17 06:12 Dose: 40 mg Prochlorperazine Edisylate (Compazine Inj) 10 mg IVP Q6HR PRN PRN Reason: Nausea / Vomiting Saccharomyces Boulardii (Florastor) 250 mg PO BIDWM [facility] Last Admin: 12/10/17 09:56 Dose: 250 mg Sodium Chloride (Normal Saline Flush 0.9%) 10 ml IVP 0100,0900,1700 [facility] Last Admin: 12/10/17 09:57 Dose: 10 ml Sodium Chloride (Normal Saline Flush 0.9%) 10 ml IVP PRN PRN PRN Reason: NEEDED PER PROVIDER ORDERS Last Admin: 12/10/17 10:39 Dose: 10 ml Zolpidem Tartrate (Ambien) 5 mg PO QPM PRN PRN Reason: Insomnia Albuterol Sulfate [Proair Hfa Inhaler] 1 puffs INH Q4H PRN 12/19/16 Albuterol 3 ml INH Q8H PRN 12/09/17 Objective - Vital Signs/Intake & Output Reviewed Vital Signs: Yes Vital Signs: Vital Signs Pulse Pulse Resp BP Pulse Ox 12/10/17 14:00 103 H 20 115/80 99 12/10/17 13:18 98 17 12/10/17 13:15 104 H 12/10/17 13:00 94 17 106/83 H 98 12/10/17 12:00 102 H 19 107/79 98 Intake & Output: Intake & Output 12/07/17 12/08/17 12/09/17 12/10/17 23:59 23:59 23:59 23:59 Intake Total 1150 680 Output Total 750 0 Balance 400 680 - Objective General Appearance: positive: Alert, Moderate distress ( from shortness of breath and coughing) Eyes Bilateral: positive: PERRL ENT: positive: Dry mucous membranes Neck: positive: No JVD. negative: Stiff neck, Carotid bruit Respiratory: positive: Chest non-tender, Wheezes (but almost silent otherwise. Wheezes are faint and at the end of exhalation. She is using increased rib cage muscles to move air). negative: Rales, Rhonchi Cardiovascular: positive: Regular rate & rhythm, Tachycardia (occasional). negative: Gallop/S4, Friction rub Abdomen: positive: Non-tender, No organomegaly, Nml bowel sounds, No distention Skin: positive: Warm, Dry Extremities: positive: Full ROM, No pedal edema Neurologic/Psychiatric: positive: Oriented x3, CN's nml (2-12), Motor nml - Lab Results Fish Bones: 12/10/17 04:20 12/10/17 04:20 Other Labs: Lab Results x24hrs 12/10/17 12/10/17 12/10/17 Range/Units 07:15 04:20 04:20 WBC 13.5 H (4.8-10.8) x10^3/uL RBC 4.83 (4.20-5.40) 10^6/uL Hgb 14.5 (12.0-16.0) g/dL Hct 44.7 (37.0-47.0) % MCV 92.5 (81.0-99.0) fL MCH 30.1 (27.0-31.0) pg MCHC 32.6 (32.0-36.0) g/dL RDW 13.0 (12.0-15.0) % Plt Count 358 (130-450) 10^3/uL MPV 7.9 (7.9-10.8) fL Neut # 12.2 H (1.5-6.6) 10^3/uL Lymph # 1.0 L (1.5-3.5) 10^3/uL [place] # 0.3 (0.0-1.0) 10^3/uL Eos # 0.0 (0.0-0.7) 10^3/uL Baso # 0.0 (0.0-0.1) 10^3/uL Absolute Nucleated RBC 0.00 x10^3/uL Nucleated RBC % 0.0 /100WBC Bld Gas Analysis Time 0715 Sample Site RIGHT RADIAL ABG pH 7.34 L (7.35-7.45) ABG pCO2 44 (34-45) mmHg ABG pO2 73 L (80-100) mmHg ABG HCO3 23.5 (22.0-26.0) mmol/L ABG Total CO2 24.9 (21.0-29.0) MMOL/L ABG O2 Saturation 94 (94-98) % ABG Oximetry Spot Check 95 % ABG Base Excess -2.3 L (-2.0-3.0) mmol/L Eric Test NOT APPLICABLE Respiration Rate 18 b/min O2 Delivery Device BiPAP Vent Mode SYNCHRONOUS/TIMES FiO2 40.00 Tidal Volume 672 mL EPAP 5 cmH2O IPAP 18 cmH2O Sodium 135 (135-145) mmol/L Potassium 4.7 (3.5-5.0) mmol/L Chloride 101 (101-111) mmol/L Carbon Dioxide 25 (21-32) mmol/L Anion Gap 9.0 (6-13) BUN 15 (6-20) mg/dL Creatinine 0.7 (0.4-1.0) mg/dL Estimated GFR (MDRD) 88 L (>89) Glucose 205 H (70-100) mg/dL Calcium 9.2 (8.5-10.3) mg/dL Phosphorus 2.8 (2.5-4.6) mg/dL Magnesium 2.3 (1.7-2.8) mg/dL Total Bilirubin 1.0 (0.2-1.0) mg/dL AST 17 (10-42) IU/L ALT 21 (10-60) IU/L Alkaline Phosphatase 68 (42-121) IU/L Total Protein 7.4 (6.7-8.2) g/dL Albumin 4.1 (3.2-5.5) g/dL Globulin 3.3 (2.1-4.2) g/dL Albumin/Globulin Ratio 1.2 (1.0-2.2) Urine Color Urine Clarity (CLEAR) Urine pH (5.0-7.5) PH Ur Specific [place] (1.002-1.030) Urine Protein (NEGATIVE) mg/dL Urine Glucose (UA) (NEGATIVE) mg/dL Urine Ketones (NEGATIVE) mg/dL Urine Occult Blood (NEGATIVE) Urine Nitrite (NEGATIVE) Urine Bilirubin (NEGATIVE) Urine Urobilinogen (NORMAL) E.U./dL Ur Leukocyte Esterase (NEGATIVE) Ur Microscopic Review Urine Culture Comments 12/09/17 Range/Units 16:45 WBC (4.8-10.8) x10^3/uL RBC (4.20-5.40) 10^6/uL Hgb (12.0-16.0) g/dL Hct (37.0-47.0) % MCV (81.0-99.0) fL MCH (27.0-31.0) pg MCHC (32.0-36.0) g/dL RDW (12.0-15.0) % Plt Count (130-450) 10^3/uL MPV (7.9-10.8) fL Neut # (1.5-6.6) 10^3/uL Lymph # (1.5-3.5) 10^3/uL [place] # (0.0-1.0) 10^3/uL Eos # (0.0-0.7) 10^3/uL Baso # (0.0-0.1) 10^3/uL Absolute Nucleated RBC x10^3/uL Nucleated RBC % /100WBC Bld Gas Analysis Time Sample Site ABG pH (7.35-7.45) ABG pCO2 (34-45) mmHg ABG pO2 (80-100) mmHg ABG HCO3 (22.0-26.0) mmol/L ABG Total CO2 (21.0-29.0) MMOL/L ABG O2 Saturation (94-98) % ABG Oximetry Spot Check % ABG Base Excess (-2.0-3.0) mmol/L Eric Test Respiration Rate b/min O2 Delivery Device Vent Mode FiO2 Tidal Volume mL EPAP cmH2O IPAP cmH2O Sodium (135-145) mmol/L Potassium (3.5-5.0) mmol/L Chloride (101-111) mmol/L Carbon Dioxide (21-32) mmol/L Anion Gap (6-13) BUN (6-20) mg/dL Creatinine (0.4-1.0) mg/dL Estimated GFR (MDRD) (>89) Glucose (70-100) mg/dL Calcium (8.5-10.3) mg/dL Phosphorus (2.5-4.6) mg/dL Magnesium (1.7-2.8) mg/dL Total Bilirubin (0.2-1.0) mg/dL AST (10-42) IU/L ALT (10-60) IU/L Alkaline Phosphatase (42-121) IU/L Total Protein (6.7-8.2) g/dL Albumin (3.2-5.5) g/dL Globulin (2.1-4.2) g/dL Albumin/Globulin Ratio (1.0-2.2) Urine Color YELLOW Urine Clarity CLEAR (CLEAR) Urine pH 5.5 (5.0-7.5) PH Ur Specific [place] >=1.030 H (1.002-1.030) Urine Protein NEGATIVE (NEGATIVE) mg/dL Urine Glucose (UA) NEGATIVE (NEGATIVE) mg/dL Urine Ketones NEGATIVE (NEGATIVE) mg/dL Urine Occult Blood NEGATIVE (NEGATIVE) Urine Nitrite NEGATIVE (NEGATIVE) Urine Bilirubin NEGATIVE (NEGATIVE) Urine Urobilinogen 0.2 (NORMAL) (NORMAL) E.U./dL Ur Leukocyte Esterase NEGATIVE (NEGATIVE) Ur Microscopic Review NOT INDICATED Urine Culture Comments NOT INDICATED Assessment/Plan - Problem List (1) Acute respiratory failure with hypoxia Impression: Patient presented with shortness of breath for about 1 week with a dry cough and wheezing. Patient's symptoms were progressively worsening over the week to a point where she had severe shortness of breath prior to presenting into the emergency department. On presentation the patient had hypoxia with oxygen saturation of 70% and was in severe respiratory distress. Patient has history of allergic asthma and appears to have asthma exacerbation which led to acute respiratory failure with hypoxia. Patient required BiPAP in the emergency department and was admitted to ICU with BiPAP. Able to come off after a few hours in the morning of 12/09 but by this am back again. Back to the beginning of controlling her cough, hypoxia. Plan: Stay in ICU BiPAP prn Nebs around the clock and as needed Continue IV Solu-Medrol every 6 hours Continue IV Levaquin Monitor closely Add theophylline (2) Asthma exacerbation Conclusion/Plan: Patient has history of allergic asthma. She usually has a bad exacerbation around this time of the year. Typically she does not require hospitalization and only requires a visit to the emergency department. This time patient's symptoms started about 1 week ago and has been progressively worsening. She finally came in today and was in severe respiratory distress requiring BiPAP in the emergency department. She had an oxygen saturation of only 70% on presentation. Plan: as above with- Nebs around the clock 24 hours Nebs as needed every 4 hours IV Solu-Medrol every 6 hours IV Levaquin BiPAP Qualifiers: Asthma severity: unspecified severity Asthma persistence: intermittent Qualified Code(s): J45.21 - Mild intermittent asthma with (acute) exacerbation (3) Tobacco abuse Conclusion/Plan: Patient has history of tobacco abuse and smokes half a pack per day. Patient was advised to quit smoking and offered a nicotine patch. She is on one now. (4) Hyperglycemia Conclusion/Plan: The patient presents with significant hyperglycemia as she has a glucose of 300 on her blood chemistry. This may have been after she got a dose of IV steroids which may have caused the glucose to be significantly elevated. This is however of concern given the level of elevation in her blood glucose. A1c was 6.2% yesterday so strong suspicion she has Type 2 DM, new diagnosis, and that the steroids we are giving her has made that worse. Continue
[2017-12-10] MEDS: guaiFENesin/CODEINE 5 ML UDC PO PRN ×2 (15:26→21:06)
[2017-12-10] MEDS: methylPREDNISolone SUCCINATE 125 MG/2 ML VIAL IVP SCH ×2 (16:12→21:06)
[2017-12-10] MEDS: LORazepam 0.5 MG TABLET PO PRN ×2 (17:15→21:06)
[2017-12-11] MEDS: IPRATROPIUM/ALBUTEROL 3 ML NEB INH SCH ×4 (02:16→22:03)
[2017-12-11 05:02] LABS: BASOPHILS % (AUTO) 0.1 %; HGB - HEMOGLOBIN 13.6 g/dL (12.0-16.0); LYMPHOCYTES # (AUTO) 0.9 10^3/uL (1.5-3.5); LYMPHOCYTES % (AUTO) 5.1 %; MEAN CORPUSCULAR HEMOGLOBIN 29.6 pg (27.0-31.0); MEAN CORPUSCULAR HGB CONC 31.8 g/dL (32.0-36.0); MEAN CORPUSCULAR VOLUME 92.9 fL (81.0-99.0); MEAN PLATELET VOLUME 8.2 fL (7.9-10.8); MONOCYTES # (AUTO) 0.6 10^3/uL (0.0-1.0); MONOCYTES % (AUTO) 3.4 %; NEUTROPHILS # (AUTO) 16.4 10^3/uL (1.5-6.6); NEUTROPHILS % (AUTO) 91.4 %; PLT - PLATELET COUNT 310 10^3/uL (130-450); RED BLOOD COUNT 4.61 10^6/uL (4.20-5.40); WHITE BLOOD COUNT 17.9 x10^3/uL (4.8-10.8)
[2017-12-11] MEDS: methylPREDNISolone SUCCINATE 125 MG/2 ML VIAL IVP SCH ×4 (05:08→21:43)
[2017-12-11] MEDS: PANTOPRAZOLE 40 MG VIAL IVP SCH (05:08)
[2017-12-11] MEDS: SODIUM CHLORIDE FLUSH 0.9% 10 ML SYRINGE IVP SCH ×4 (05:08→21:44)
[2017-12-11] MEDS: guaiFENesin/CODEINE 5 ML UDC PO PRN ×3 (05:08→18:10)
[2017-12-11] MEDS: IPRATROPIUM/ALBUTEROL 3 ML NEB INH PRN (05:11)
[2017-12-11 05:12] LABS: ALBUMIN 3.9 g/dL (3.2-5.5); ALBUMIN/GLOBULIN RATIO 1.2 (1.0-2.2); BILIRUBIN,TOTAL 0.6 mg/dL (0.2-1.0); CALCIUM 9.1 mg/dL (8.5-10.3); CREATININE 0.7 mg/dL (0.4-1.0); MAGNESIUM 2.5 mg/dL (1.7-2.8); TOTAL PROTEIN 7.1 g/dL (6.7-8.2)
[2017-12-11] MEDS: ENOXAPARIN 40 MG/0.4 ML SYRINGE SUBQ SCH (08:23)
[2017-12-11] MEDS: LORazepam 2 MG/ML VIAL IVP PRN (08:28)
[2017-12-11] MEDS: SACCHAROMYCES BOULARDII 250 MG CAPSULE PO SCH ×2 (08:51→17:41)
[2017-12-11] MEDS: NICOTINE 14 MG PATCH TOP SCH (08:52)
[2017-12-11] MEDS: FEXOFENADINE 60 MG TABLET PO SCH (08:52)
[2017-12-11] MEDS: levoFLOXacin 250 MG TABLET PO SCH (08:52)
[2017-12-11] MEDS: LORazepam 0.5 MG TABLET PO PRN ×3 (11:06→21:44)
[2017-12-11] MEDS: CHLORHEXIDINE GLUCONATE 15 ML UDC PO SCH ×2 (11:06→21:43)
[2017-12-11] MEDS: SODIUM CHLORIDE FLUSH 0.9% 10 ML SYRINGE IVP PRN (16:06)
--- NOTE | 2017-12-11 18:48 | PROVIDER PROGRESS NOTE ---
Subjective - Prog Note Date Prog Note Date: 12/11/17 Prog Note Time: 18:44 - Subjective Subjective: she has not needed BiPAP since yesterday late morning. Has been on high flow humdified O2 and stable. still has spasms of wheezing, coughing, and oc O2 sat drops to 90% but overall improving slowly from yesterday Current Medications - Current Medications Current Medications: Active Medications Acetaminophen (Tylenol) 650 mg PO Q4HR PRN PRN Reason: Pain 1 to 4 Albuterol/Ipratropium (Duoneb) 3 ml INH RTQ4H PRN PRN Reason: Wheezing Last Admin: 12/11/17 05:11 Dose: 3 ml Albuterol/Ipratropium (Duoneb) 3 ml INH RTQ6H [facility] Last Admin: 12/11/17 15:45 Dose: 3 ml Chlorhexidine Gluconate (Peridex) 15 ml PO BID [facility] Last Admin: 12/11/17 11:06 Dose: 15 ml Enoxaparin Sodium (Lovenox) 40 mg SUBQ DAILY [facility] Last Admin: 12/11/17 08:23 Dose: 40 mg Fexofenadine HCl (Tosin) 60 mg PO DAILY [facility] Last Admin: 12/11/17 08:52 Dose: 60 mg Guaifenesin/Codeine Phosphate (Robitussin Ac) 5 ml PO Q6HR PRN PRN Reason: Cough Last Admin: 12/11/17 18:10 Dose: 5 ml Levofloxacin (Levaquin) 750 mg PO DAILY [facility] Last Admin: 12/11/17 08:52 Dose: 750 mg Lorazepam (Ativan) 0.5 mg PO Q2HR PRN PRN Reason: Anxiety Last Admin: 12/11/17 16:00 Dose: 0.5 mg Lorazepam (Ativan Inj (Vial)) 0.5 mg IVP Q2H PRN PRN Reason: Anxiety Last Admin: 12/11/17 08:28 Dose: 0.5 mg Methylprednisolone Sodium Succinate (Solu-Medrol (125mg Vial)) 125 mg IVP Q6H [facility] Last Admin: 12/11/17 16:06 Dose: 125 mg Morphine Sulfate (Morphine) 2 mg IVP Q2H PRN PRN Reason: Pain 8 to 10 Last Admin: 12/10/17 14:58 Dose: 2 mg Nicotine (Nicoderm) 1 patch TOP DAILY [facility] Last Admin: 12/11/17 08:52 Dose: Not Given Ondansetron HCl (Zofran Inj) 4 mg IVP Q6HR PRN PRN Reason: Nausea / Vomiting Oxycodone HCl (Roxicodone) 5 mg PO Q4HR PRN PRN Reason: Pain 5 to 7 Pantoprazole Sodium (Protonix) 40 mg IVP QDAC [facility] Last Admin: 12/11/17 05:08 Dose: 40 mg Prochlorperazine Edisylate (Compazine Inj) 10 mg IVP Q6HR PRN PRN Reason: Nausea / Vomiting Saccharomyces Boulardii (Florastor) 250 mg PO BIDWM [facility] Last Admin: 12/11/17 17:41 Dose: 250 mg Sodium Chloride (Normal Saline Flush 0.9%) 10 ml IVP 0100,0900,1700 [facility] Last Admin: 12/11/17 17:42 Dose: 10 ml Sodium Chloride (Normal Saline Flush 0.9%) 10 ml IVP PRN PRN PRN Reason: NEEDED PER PROVIDER ORDERS Last Admin: 12/11/17 16:06 Dose: 10 ml Zolpidem Tartrate (Ambien) 5 mg PO QPM PRN PRN Reason: Insomnia Albuterol Sulfate [Proair Hfa Inhaler] 1 puffs INH Q4H PRN 12/19/16 Albuterol 3 ml INH Q8H PRN 12/09/17 Objective - Vital Signs/Intake & Output Vital Signs: Vital Signs Temp Pulse Pulse Resp BP Pulse Ox 12/11/17 18:00 102 H 14 121/80 96 12/11/17 17:00 20 L 20 128/77 97 12/11/17 16:00 37.2 C 96 17 119/81 H 94 12/11/17 15:45 98 13 12/11/17 15:00 108 H 13 113/75 93 Intake & Output: Intake & Output 12/08/17 12/09/17 12/10/17 12/11/17 23:59 23:59 23:59 23:59 Intake Total 1150 2230 1005 Output Total 750 1000 800 Balance 400 1230 205 - Objective General Appearance: positive: No acute distress, Lethargic Eyes Bilateral: positive: PERRL, EOMI ENT: positive: Pharynx nml Neck: positive: No JVD. negative: Stiff neck, Carotid bruit Respiratory: positive: Chest non-tender, Other (I have examined her twice and today she has either very quiet lungs with faint end exhalation wheezing and very poor breath sounds or loud wheezing with cough. No use of accessory muscles. No struggling.) Cardiovascular: positive: Regular rate & rhythm. negative: Gallop/S4, Friction rub Abdomen: positive: Non-tender, No organomegaly, Nml bowel sounds, No distention , Other (she does eat her food but does drop her sats with that) Skin: positive: Warm, Dry Extremities: positive: Full ROM, No pedal edema Neurologic/Psychiatric: positive: Oriented x3, CN's nml (2-12), Motor nml - Lab Results Fish Bones: 12/11/17 04:35 12/11/17 04:35 Other Labs: Lab Results x24hrs 12/11/17 12/11/17 Range/Units 04:35 04:35 WBC 17.9 H (4.8-10.8) x10^3/uL RBC 4.61 (4.20-5.40) 10^6/uL Hgb 13.6 (12.0-16.0) g/dL Hct 42.9 (37.0-47.0) % MCV 92.9 (81.0-99.0) fL MCH 29.6 (27.0-31.0) pg MCHC 31.8 L (32.0-36.0) g/dL RDW 13.0 (12.0-15.0) % Plt Count 310 (130-450) 10^3/uL MPV 8.2 (7.9-10.8) fL Neut # 16.4 H (1.5-6.6) 10^3/uL Lymph # 0.9 L (1.5-3.5) 10^3/uL [place] # 0.6 (0.0-1.0) 10^3/uL Eos # 0.0 (0.0-0.7) 10^3/uL Baso # 0.0 (0.0-0.1) 10^3/uL Absolute Nucleated RBC 0.00 x10^3/uL Nucleated RBC % 0.0 /100WBC Sodium 134 L (135-145) mmol/L Potassium 4.6 (3.5-5.0) mmol/L Chloride 98 L (101-111) mmol/L Carbon Dioxide 27 (21-32) mmol/L Anion Gap 9.0 (6-13) BUN 22 H (6-20) mg/dL Creatinine 0.7 (0.4-1.0) mg/dL Estimated GFR (MDRD) 88 L (>89) Glucose 210 H (70-100) mg/dL Calcium 9.1 (8.5-10.3) mg/dL Phosphorus 3.0 (2.5-4.6) mg/dL Magnesium 2.5 (1.7-2.8) mg/dL Total Bilirubin 0.6 (0.2-1.0) mg/dL AST 20 (10-42) IU/L ALT 20 (10-60) IU/L Alkaline Phosphatase 59 (42-121) IU/L Total Protein 7.1 (6.7-8.2) g/dL Albumin 3.9 (3.2-5.5) g/dL Globulin 3.2 (2.1-4.2) g/dL Albumin/Globulin Ratio 1.2 (1.0-2.2) Assessment/Plan - Problem List (1) Acute respiratory failure with hypoxia Impression: Patient presented with shortness of breath for about 1 week with a dry cough and wheezing. Patient's symptoms were progressively worsening over the week to a point where she had severe shortness of breath prior to presenting into the emergency department. On presentation the patient had hypoxia with oxygen saturation of 70% and was in severe respiratory distress. Patient has history of allergic asthma and appears to have asthma exacerbation which led to acute respiratory failure with hypoxia. Patient required BiPAP in the emergency department and was admitted to ICU with BiPAP. Able to come off after a few hours in the morning of 12/09 but by 12/10 back on it again. Able to come off it by early afternoon, late morning of 12/10 and on high flow O2 now. Tenuous stability and cough or eating drop her sats. Plan: Stay in ICU BiPAP prn Nebs around the clock and as needed Continue IV Solu-Medrol every 6 hours Continue IV Levaquin Monitor closely Thought to Add theophylline but I decided not to she is slowly but not tremendously improved. (2) Asthma exacerbation Conclusion/Plan: Patient has history of allergic asthma. She usually has a bad exacerbation around this time of the year. Typically she does not require hospitalization and only requires a visit to the emergency department. This time patient's symptoms started about 1 week ago and has been progressively worsening. She finally came in today and was in severe respiratory distress requiring BiPAP in the emergency department. She had an oxygen saturation of only 70% on presentation. Plan: as above with- Nebs around the clock 24 hours Nebs as needed every 4 hours IV Solu-Medrol every 6 hours IV Levaquin BiPAP Qualifiers: Asthma severity: unspecified severity Asthma persistence: intermittent Qualified Code(s): J45.21 - Mild intermittent asthma with (acute) exacerbation (3) Tobacco abuse Conclusion/Plan: Patient has history of tobacco abuse and smokes half a pack per day. Patient was advised to quit smoking and offered a nicotine patch. She is on one now. (4) Hyperglycemia Conclusion/Plan: The patient presents with significant hyperglycemia as she has a glucose of 300 on her blood chemistry. This may have been after she got a dose of IV steroids which may have caused the glucose to be significantly elevated. This is however of concern given the level of elevation in her blood glucose. A1c was 6.2% 12/09 so strong suspicion she has Type 2 DM, new diagnosis, and that the steroids we are giving her has made that worse. Continue SS insulin
[2017-12-12] MEDS: guaiFENesin/CODEINE 5 ML UDC PO PRN ×2 (04:30→13:27)
[2017-12-12] MEDS: methylPREDNISolone SUCCINATE 125 MG/2 ML VIAL IVP SCH ×4 (04:30→22:15)
[2017-12-12] MEDS: IPRATROPIUM/ALBUTEROL 3 ML NEB INH SCH ×3 (04:37→22:18)
[2017-12-12] MEDS: LORazepam 2 MG/ML VIAL IVP PRN ×2 (04:51→16:00)
[2017-12-12 05:40] LABS: HGB - HEMOGLOBIN 13.9 g/dL (12.0-16.0); LYMPHOCYTES # (AUTO) 0.9 10^3/uL (1.5-3.5); LYMPHOCYTES % (AUTO) 5.7 %; MEAN CORPUSCULAR HGB CONC 32.7 g/dL (32.0-36.0); MEAN CORPUSCULAR VOLUME 91.8 fL (81.0-99.0); MEAN PLATELET VOLUME 8.1 fL (7.9-10.8); MONOCYTES # (AUTO) 0.4 10^3/uL (0.0-1.0); MONOCYTES % (AUTO) 2.6 %; NEUTROPHILS # (AUTO) 14.3 10^3/uL (1.5-6.6); NEUTROPHILS % (AUTO) 91.7 %; PLT - PLATELET COUNT 328 10^3/uL (130-450); RED BLOOD COUNT 4.62 10^6/uL (4.20-5.40); RED CELL DISTRIBUTION WIDTH 12.9 % (12.0-15.0); WHITE BLOOD COUNT 15.6 x10^3/uL (4.8-10.8)
[2017-12-12 05:48] LABS: ALBUMIN 3.8 g/dL (3.2-5.5); ALBUMIN/GLOBULIN RATIO 1.2 (1.0-2.2); BILIRUBIN,TOTAL 0.9 mg/dL (0.2-1.0); CALCIUM 8.9 mg/dL (8.5-10.3); CREATININE 0.7 mg/dL (0.4-1.0); MAGNESIUM 2.5 mg/dL (1.7-2.8); TOTAL PROTEIN 7.1 g/dL (6.7-8.2)
[2017-12-12] MEDS: SODIUM CHLORIDE FLUSH 0.9% 10 ML SYRINGE IVP PRN (07:15)
[2017-12-12] MEDS: PANTOPRAZOLE 40 MG VIAL IVP SCH (07:15)
[2017-12-12 07:38] LABS: ABG PCO2 44 mmHg (34-45); ABG PH 7.43 (7.35-7.45); ABG PO2 74 mmHg (80-100)
[2017-12-12 07:39] LABS: ABG BASE EXCESS 3.5 mmol/L (-2.0-3.0); ABG HCO3 28.5 mmol/L (22.0-26.0); ABG TCO2 29.8 MMOL/L (21.0-29.0); ALLEN TEST POSITIVE
[2017-12-12 07:44] LABS: ABG OXYGEN SATURATION 95 % (94-98)
[2017-12-12] MEDS: FEXOFENADINE 60 MG TABLET PO SCH (08:41)
[2017-12-12] MEDS: SACCHAROMYCES BOULARDII 250 MG CAPSULE PO SCH ×2 (08:41→18:03)
[2017-12-12] MEDS: LORazepam 0.5 MG TABLET PO PRN ×2 (08:41→13:27)
[2017-12-12] MEDS: levoFLOXacin 250 MG TABLET PO SCH (08:41)
[2017-12-12] MEDS: CHLORHEXIDINE GLUCONATE 15 ML UDC PO SCH (08:41)
[2017-12-12] MEDS: ENOXAPARIN 40 MG/0.4 ML SYRINGE SUBQ SCH (08:43)
[2017-12-12] MEDS: NICOTINE 14 MG PATCH TOP SCH (08:43)
[2017-12-12] MEDS: SODIUM CHLORIDE FLUSH 0.9% 10 ML SYRINGE IVP SCH ×2 (08:44→18:04)
--- NOTE | 2017-12-12 14:48 | PROVIDER PROGRESS NOTE ---
Subjective - Prog Note Date Prog Note Date: 12/12/17 Prog Note Time: 14:05 - Subjective Subjective: she is stable in between episodes of cough/hypoxia. She will be fine at rest and then with cough or getting up to BR gets sob and desat. She has been on high flow humdified O2 since late morning of 12/10. Desat will be as low at 70' s. She is tired but eating, siting up at times. Gets up to BR and does not want a hannah even though RN has offered it to her every shift that I'm aware of. Current Medications - Current Medications Current Medications: Active Medications Generic Name Dose Route Start Last Admin Trade Name Freq PRN Reason Stop Dose Admin Acetaminophen 650 mg 12/09/17 05:55 12/11/17 21:44 Tylenol PO 650 mg Q4HR PRN Administration Pain 1 to 4 Albuterol/Ipratropium 3 ml 12/09/17 05:55 12/11/17 05:11 Duoneb INH 3 ml RTQ4H PRN Administration Wheezing Albuterol/Ipratropium 3 ml 12/09/17 07:00 12/12/17 10:34 Duoneb INH 3 ml RTQ6H [facility] Administration Chlorhexidine Gluconate 15 ml 12/09/17 09:00 12/12/17 08:41 Peridex PO 15 ml BID [facility] Administration Enoxaparin Sodium 40 mg 12/09/17 09:00 12/12/17 08:43 Lovenox SUBQ 40 mg DAILY [facility] Administration Fexofenadine HCl 60 mg 12/09/17 07:00 12/12/17 08:41 Tosin PO 60 mg DAILY [facility] Administration Guaifenesin/Codeine Phosphate 5 ml 12/09/17 20:41 12/12/17 13:27 Robitussin Ac PO 5 ml Q6HR PRN Administration Cough Levofloxacin 750 mg 12/09/17 09:00 12/12/17 08:41 Levaquin PO 750 mg DAILY [facility] Administration Lorazepam 0.5 mg 12/09/17 05:55 12/12/17 13:27 Ativan PO 0.5 mg Q2HR PRN Administration Anxiety Lorazepam 0.5 mg 12/10/17 06:41 12/12/17 04:51 Ativan Inj (Vial) IVP 0.5 mg Q2H PRN Administration Anxiety Methylprednisolone Sodium Succinate 125 mg 12/10/17 16:00 12/12/17 09:58 Solu-Medrol (125mg Vial) IVP 125 mg Q6H [facility] Administration Morphine Sulfate 2 mg 12/09/17 05:55 12/10/17 14:58 Morphine IVP 2 mg Q2H PRN Administration Pain 8 to 10 Nicotine 1 patch 12/09/17 07:00 12/12/17 08:43 Nicoderm TOP Not Given DAILY [facility] Ondansetron HCl 4 mg 12/09/17 05:55 Zofran Inj IVP Q6HR PRN Nausea / Vomiting Oxycodone HCl 5 mg 12/09/17 05:55 Roxicodone PO Q4HR PRN Pain 5 to 7 Pantoprazole Sodium 40 mg 12/09/17 07:00 12/12/17 07:15 Protonix IVP 40 mg QDAC [facility] Administration Prochlorperazine Edisylate 10 mg 12/09/17 05:55 Compazine Inj IVP Q6HR PRN Nausea / Vomiting Saccharomyces Boulardii 250 mg 12/09/17 08:00 12/12/17 08:41 Florastor PO 250 mg BIDWM [facility] Administration Sodium Chloride 10 ml 12/09/17 09:00 12/12/17 08:44 Normal Saline Flush 0.9% IVP 10 ml 0100,0900,1700 [facility] Administration Sodium Chloride 10 ml 12/09/17 05:55 12/12/17 07:15 Normal Saline Flush 0.9% IVP 10 ml PRN PRN Administration NEEDED PER PROVIDER ORDERS Zolpidem Tartrate 5 mg 12/09/17 05:55 Ambien PO QPM PRN Insomnia Albuterol Sulfate [Proair Hfa Inhaler] 1 puffs INH Q4H PRN 12/19/16 Albuterol 3 ml INH Q8H PRN 12/09/17 Objective - Vital Signs/Intake & Output Reviewed Vital Signs: Yes Vital Signs: Vital Signs x48h Temp Pulse Pulse Resp BP Pulse Ox 12/12/17 13:00 106 H 18 123/70 97 12/12/17 12:00 117 H 22 97/62 93 12/12/17 11:00 104 H 21 110/66 95 12/12/17 10:29 109 H 14 12/12/17 10:00 94 12 112/73 98 12/12/17 09:00 97.7 C H 96 21 114/76 97 12/12/17 08:00 37.1 C 113 H 15 104/70 93 12/12/17 07:00 85 17 114/72 98 Intake & Output: Intake & Output 12/09/17 12/10/17 12/11/17 12/12/17 23:59 23:59 23:59 23:59 Intake Total 1150 2230 1465 580 Output Total 750 6171 442 1146 Balance 400 1230 665 -870 - Objective General Appearance: positive: No acute distress, Other (asleep and wakens easilu ) - Lab Results Fish Bones: 12/12/17 05:15 12/12/17 05:15 Other Labs: Lab Results x24hrs 12/12/17 12/12/17 12/12/17 Range/Units 07:26 05:15 05:15 WBC 15.6 H (4.8-10.8) x10^3/uL RBC 4.62 (4.20-5.40) 10^6/uL Hgb 13.9 (12.0-16.0) g/dL Hct 42.4 (37.0-47.0) % MCV 91.8 (81.0-99.0) fL MCH 30.0 (27.0-31.0) pg MCHC 32.7 (32.0-36.0) g/dL RDW 12.9 (12.0-15.0) % Plt Count 328 (130-450) 10^3/uL MPV 8.1 (7.9-10.8) fL Neut # 14.3 H (1.5-6.6) 10^3/uL Lymph # 0.9 L (1.5-3.5) 10^3/uL [place] # 0.4 (0.0-1.0) 10^3/uL Eos # 0.0 (0.0-0.7) 10^3/uL Baso # 0.0 (0.0-0.1) 10^3/uL Absolute Nucleated RBC 0.00 x10^3/uL Nucleated RBC % 0.0 /100WBC Bld Gas Analysis Time 0736 Sample Site RIGHT RADIAL ABG pH 7.43 (7.35-7.45) ABG pCO2 44 (34-45) mmHg ABG pO2 74 L (80-100) mmHg ABG HCO3 28.5 H (22.0-26.0) mmol/L ABG Total CO2 29.8 H (21.0-29.0) MMOL/L ABG O2 Saturation 95 (94-98) % ABG Oximetry Spot Check 97 % ABG Base Excess 3.5 H (-2.0-3.0) mmol/L Eric Test POSITIVE O2 Delivery Device HFNC O2 Liters/Min 50.00 LPM FiO2 0.60 Sodium 135 (135-145) mmol/L Potassium 4.4 (3.5-5.0) mmol/L Chloride 99 L (101-111) mmol/L Carbon Dioxide 28 (21-32) mmol/L Anion Gap 8.0 (6-13) BUN 20 (6-20) mg/dL Creatinine 0.7 (0.4-1.0) mg/dL Estimated GFR (MDRD) 88 L (>89) Glucose 232 H (70-100) mg/dL Calcium 8.9 (8.5-10.3) mg/dL Phosphorus 4.0 (2.5-4.6) mg/dL Magnesium 2.5 (1.7-2.8) mg/dL Total Bilirubin 0.9 (0.2-1.0) mg/dL AST 18 (10-42) IU/L ALT 18 (10-60) IU/L Alkaline Phosphatase 62 (42-121) IU/L Total Protein 7.1 (6.7-8.2) g/dL Albumin 3.8 (3.2-5.5) g/dL Globulin 3.3 (2.1-4.2) g/dL Albumin/Globulin Ratio 1.2 (1.0-2.2) ABX Reporting Has patient been on IV antibiotics over the past 48 hours?: Yes Assessment/Plan - Problem List (1) Acute respiratory failure with hypoxia Impression: Patient presented with shortness of breath for about 1 week with a dry cough and wheezing. Patient's symptoms were progressively worsening over the week to a point where she had severe shortness of breath prior to presenting into the emergency department. On presentation the patient had hypoxia with oxygen saturation of 70% and was in severe respiratory distress. Patient has history of allergic asthma and appears to have asthma exacerbation which led to acute respiratory failure with hypoxia. Patient required BiPAP in the emergency department and was admitted to ICU with BiPAP. Able to come off after a few hours in the morning of 12/09 but by 12/10 back on it again. Able to come off it by early afternoon, late morning of 12/10 and on high flow O2 now. Tenuous stability and cough or eating drop her sats. It continues this morning. Does respond to nebs. Plan: Stay in ICU BiPAP prn Continue Nebs around the clock and as needed Continue IV Solu-Medrol every 6 hours Change to po levaquin, Day #4 Monitor closely Thought to Add theophylline but I decided not to she is slowly but not tremendously improved. Check ECHO to make sure I'm not missing cardiac cause even though no hx of orhtopnea, edema, chest pain, or valvular heart disease (2) Asthma exacerbation Conclusion/Plan: Patient has history of allergic asthma. She usually has a bad exacerbation around this time of the year. Typically she does not require hospitalization and only requires a visit to the emergency department. This time patient's symptoms started about 1 week ago and has been progressively worsening. She finally came in today and was in severe respiratory distress requiring BiPAP in the emergency department. She had an oxygen saturation of only 70% on presentation. Plan: as above with- Nebs around the clock 24 hours Nebs as needed every 4 hours IV Solu-Medrol every 6 hours IV Levaquin>to po levaquin BiPAP Qualifiers: Asthma severity: unspecified severity Asthma persistence: intermittent Qualified Code(s): J45.21 - Mild intermittent asthma with (acute) exacerbation (3) Tobacco abuse Conclusion/Plan: Patient has history of tobacco abuse and smokes half a pack per day. Patient was advised to quit smoking and offered a nicotine patch. She is on one now. (4) Hyperglycemia Conclusion/Plan: The patient presents with significant hyperglycemia as she has a glucose of 300 on her blood chemistry. This may have been after she got a dose of IV steroids which may have caused the glucose to be significantly elevated. This is however of concern given the level of elevation in her blood glucose. A1c was 6.2% 12/09 so strong suspicion she has Type 2 DM, new diagnosis, and that the steroids we are giving her has made that worse. Continue SS insulin
[2017-12-12] MEDS ORDERED: IPRATROPIUM/ALBUTEROL 3 ML NEB INH SCH (17:00)
[2017-12-13] MEDS: SODIUM CHLORIDE FLUSH 0.9% 10 ML SYRINGE IVP SCH ×4 (04:51→23:30)
[2017-12-13] MEDS: methylPREDNISolone SUCCINATE 125 MG/2 ML VIAL IVP SCH ×2 (04:52→10:22)
[2017-12-13 05:07] LABS: HGB - HEMOGLOBIN 13.3 g/dL (12.0-16.0); LYMPHOCYTES # (AUTO) 0.7 10^3/uL (1.5-3.5); LYMPHOCYTES % (AUTO) 6.2 %; MEAN CORPUSCULAR HEMOGLOBIN 30.1 pg (27.0-31.0); MEAN CORPUSCULAR HGB CONC 32.7 g/dL (32.0-36.0); MEAN PLATELET VOLUME 8.2 fL (7.9-10.8); MONOCYTES # (AUTO) 0.4 10^3/uL (0.0-1.0); MONOCYTES % (AUTO) 3.6 %; NEUTROPHILS # (AUTO) 10.5 10^3/uL (1.5-6.6); NEUTROPHILS % (AUTO) 90.2 %; PLT - PLATELET COUNT 282 10^3/uL (130-450); RED BLOOD COUNT 4.41 10^6/uL (4.20-5.40); WHITE BLOOD COUNT 11.6 x10^3/uL (4.8-10.8)
[2017-12-13 05:15] LABS: ALBUMIN 3.6 g/dL (3.2-5.5); ALBUMIN/GLOBULIN RATIO 1.2 (1.0-2.2); BILIRUBIN,TOTAL 0.6 mg/dL (0.2-1.0); CALCIUM 8.6 mg/dL (8.5-10.3); CREATININE 0.6 mg/dL (0.4-1.0); MAGNESIUM 2.7 mg/dL (1.7-2.8); PHOSPHORUS 2.9 mg/dL (2.5-4.6); TOTAL PROTEIN 6.6 g/dL (6.7-8.2)
[2017-12-13] MEDS: PANTOPRAZOLE 40 MG VIAL IVP SCH (06:55)
[2017-12-13] MEDS: CHLORHEXIDINE GLUCONATE 15 ML UDC PO SCH ×3 (06:56→21:37)
[2017-12-13] MEDS: IPRATROPIUM/ALBUTEROL 3 ML NEB INH SCH ×4 (07:24→20:57)
[2017-12-13] MEDS: SACCHAROMYCES BOULARDII 250 MG CAPSULE PO SCH ×2 (08:31→17:15)
[2017-12-13] MEDS: levoFLOXacin 250 MG TABLET PO SCH (08:32)
[2017-12-13] MEDS: NICOTINE 14 MG PATCH TOP SCH (08:34)
[2017-12-13] MEDS: FEXOFENADINE 60 MG TABLET PO SCH (08:41)
[2017-12-13] MEDS: ENOXAPARIN 40 MG/0.4 ML SYRINGE SUBQ SCH (10:22)
[2017-12-13] MEDS: SODIUM CHLORIDE FLUSH 0.9% 10 ML SYRINGE IVP PRN ×2 (10:23→17:16)
[2017-12-13] MEDS ORDERED: methylPREDNISolone 4 MG TABLET PO ONE (12:00)
--- NOTE | 2017-12-13 16:15 | PROVIDER PROGRESS NOTE ---
Subjective - Prog Note Date Prog Note Date: 12/13/17 Prog Note Time: 16:13 - Subjective Pt reports feeling: Improved Subjective: she's very excited. Off of high flow O2. On 10 liters oxymizer. Able to get up to bathroom and only desat to 90% as opposed to 70's or 80's which is what she did before. no phglem occ cough still wheezes quite a bit off and on Current Medications - Current Medications Current Medications: Active Medications Acetaminophen (Tylenol) 650 mg PO Q4HR PRN PRN Reason: Pain 1 to 4 Last Admin: 12/11/17 21:44 Dose: 650 mg Albuterol/Ipratropium (Duoneb) 3 ml INH RTQ4H PRN PRN Reason: Wheezing Last Admin: 12/11/17 05:11 Dose: 3 ml Albuterol/Ipratropium (Duoneb) 3 ml INH RTQID ALVIN Last Admin: 12/13/17 15:57 Dose: 3 ml Chlorhexidine Gluconate (Peridex) 15 ml PO BID [facility] Last Admin: 12/13/17 08:36 Dose: 15 ml Enoxaparin Sodium (Lovenox) 40 mg SUBQ DAILY [facility] Last Admin: 12/13/17 10:22 Dose: 40 mg Fexofenadine HCl (Tosin) 60 mg PO DAILY [facility] Last Admin: 12/13/17 08:41 Dose: 60 mg Guaifenesin/Codeine Phosphate (Robitussin Ac) 5 ml PO Q6HR PRN PRN Reason: Cough Last Admin: 12/12/17 13:27 Dose: 5 ml Levofloxacin (Levaquin) 750 mg PO DAILY [facility] Last Admin: 12/13/17 08:32 Dose: 750 mg Lorazepam (Ativan) 0.5 mg PO Q2HR PRN PRN Reason: Anxiety Last Admin: 12/12/17 13:27 Dose: 0.5 mg Lorazepam (Ativan Inj (Vial)) 0.5 mg IVP Q2H PRN PRN Reason: Anxiety Last Admin: 12/12/17 16:00 Dose: 0.5 mg Nicotine (Nicoderm) 1 patch TOP DAILY [facility] Last Admin: 12/13/17 08:34 Dose: Not Given Ondansetron HCl (Zofran Inj) 4 mg IVP Q6HR PRN PRN Reason: Nausea / Vomiting Oxycodone HCl (Roxicodone) 5 mg PO Q4HR PRN PRN Reason: Pain 5 to 7 Prochlorperazine Edisylate (Compazine Inj) 10 mg IVP Q6HR PRN PRN Reason: Nausea / Vomiting Saccharomyces Boulardii (Florastor) 250 mg PO BIDWM [facility] Last Admin: 12/13/17 08:31 Dose: 250 mg Sodium Chloride (Normal Saline Flush 0.9%) 10 ml IVP 0100,0900,1700 [facility] Last Admin: 12/13/17 06:55 Dose: 10 ml Sodium Chloride (Normal Saline Flush 0.9%) 10 ml IVP PRN PRN PRN Reason: NEEDED PER PROVIDER ORDERS Last Admin: 12/13/17 10:23 Dose: 10 ml Zolpidem Tartrate (Ambien) 5 mg PO QPM PRN PRN Reason: Insomnia Albuterol Sulfate [Proair Hfa Inhaler] 1 puffs INH Q4H PRN 12/19/16 Albuterol 3 ml INH Q8H PRN 12/09/17 Objective - Vital Signs/Intake & Output Reviewed Vital Signs: Yes Vital Signs: Vital Signs x48h Temp Pulse Pulse Resp BP Pulse Ox 12/13/17 15:58 98 14 12/13/17 15:25 106 H 16 119/71 95 12/13/17 11:31 90 16 12/13/17 11:00 91 10 L 115/68 95 12/13/17 10:00 36.6 C 102 H 19 106/65 97 12/13/17 09:00 103 H 14 131/75 H 99 Intake & Output: Intake & Output 12/10/17 12/11/17 12/12/17 12/13/17 23:59 23:59 23:59 23:59 Intake Total 2230 1465 1370 585 Output Total 5350 773 4480 400 Balance 1230 665 -80 185 - Objective General Appearance: positive: No acute distress, Alert, Other ( at the bedside. We were all laughing because she heard me coming and thought I was "Jeanne" her mom. While laughing, no wheezing or cough or sob.) Eyes Bilateral: positive: PERRL, EOMI ENT: positive: Pharynx nml Neck: positive: No JVD. negative: Carotid bruit Respiratory: positive: Chest non-tender, No respiratory distress, Wheezes. negative: Rales, Rhonchi Cardiovascular: positive: Regular rate & rhythm. negative: Gallop/S4, Friction rub Abdomen: positive: Non-tender, No organomegaly, Nml bowel sounds, No distention Skin: positive: Warm, Dry Extremities: positive: Full ROM, No pedal edema Neurologic/Psychiatric: positive: Oriented x3, CN's nml (2-12), Motor nml - Lab Results Fish Bones: 12/13/17 04:45 12/13/17 04:45 Other Labs: Lab Results x24hrs 12/13/17 12/13/17 Range/Units 04:45 04:45 WBC 11.6 H (4.8-10.8) x10^3/uL RBC 4.41 (4.20-5.40) 10^6/uL Hgb 13.3 (12.0-16.0) g/dL Hct 40.6 (37.0-47.0) % MCV 92.0 (81.0-99.0) fL MCH 30.1 (27.0-31.0) pg MCHC 32.7 (32.0-36.0) g/dL RDW 13.0 (12.0-15.0) % Plt Count 282 (130-450) 10^3/uL MPV 8.2 (7.9-10.8) fL Neut # 10.5 H (1.5-6.6) 10^3/uL Lymph # 0.7 L (1.5-3.5) 10^3/uL [place] # 0.4 (0.0-1.0) 10^3/uL Eos # 0.0 (0.0-0.7) 10^3/uL Baso # 0.0 (0.0-0.1) 10^3/uL Absolute Nucleated RBC 0.00 x10^3/uL Nucleated RBC % 0.0 /100WBC Sodium 136 (135-145) mmol/L Potassium 4.7 (3.5-5.0) mmol/L Chloride 97 L (101-111) mmol/L Carbon Dioxide 30 (21-32) mmol/L Anion Gap 9.0 (6-13) BUN 14 (6-20) mg/dL Creatinine 0.6 (0.4-1.0) mg/dL Estimated GFR (MDRD) 105 (>89) Glucose 260 H (70-100) mg/dL Calcium 8.6 (8.5-10.3) mg/dL Phosphorus 2.9 (2.5-4.6) mg/dL Magnesium 2.7 (1.7-2.8) mg/dL Total Bilirubin 0.6 (0.2-1.0) mg/dL AST 22 (10-42) IU/L ALT 24 (10-60) IU/L Alkaline Phosphatase 56 (42-121) IU/L Total Protein 6.6 L (6.7-8.2) g/dL Albumin 3.6 (3.2-5.5) g/dL Globulin 3.0 (2.1-4.2) g/dL Albumin/Globulin Ratio 1.2 (1.0-2.2) Assessment/Plan - Problem List (1) Acute respiratory failure with hypoxia Impression: Patient presented with shortness of breath for about 1 week with a dry cough and wheezing. Patient's symptoms were progressively worsening over the week to a point where she had severe shortness of breath prior to presenting into the emergency department. On presentation the patient had hypoxia with oxygen saturation of 70% and was in severe respiratory distress. Patient has history of allergic asthma and appears to have asthma exacerbation which led to acute respiratory failure with hypoxia. Patient required BiPAP in the emergency department and was admitted to ICU with BiPAP. Able to come off after a few hours in the morning of 12/09 but by 12/10 back on it again. Able to come off it by early afternoon, late morning of 12/10 and on high flow O2 now. Tenuous stability and cough or eating drop her sats. It continues this morning. Does respond to nebs. Plan: Transition to Med Surg Status from ICU status. BiPAP prn no longer needed and now went from High flow O2 w humidity to oxymizer today. Continue Nebs around the clock and as needed Continue IV Solu-Medrol every 6 hours, but decrease dose. Cahnge to po medrol. Send home on a tapering schedule. Send home on LABA and inhaled steroid Levaquin Day #5, plan for 7 days. Monitor closely Thought to Add theophylline but I decided not to she is slowly improving over last 24 hours. I hope to send home in am WITH oxygen I had ECHO done to make sure I'm not missing cardiac cause even though no hx of orhtopnea, edema, chest pain, or valvular heart disease. She does not have pulmonary HTN, EF is normal at 70-75%, valves are normal. (2) Asthma exacerbation Conclusion/Plan: Patient has history of allergic asthma. She usually has a bad exacerbation around this time of the year. Typically she does not require hospitalization and only requires a visit to the emergency department. This time patient's symptoms started about 1 week ago and has been progressively worsening. She finally came in today and was in severe respiratory distress requiring BiPAP in the emergency department. She had an oxygen saturation of only 70% on presentation. Plan: as above with- Nebs around the clock 24 hours Nebs as needed every 4 hours IV Solu-Medrol every 6 hours, decrease dose today PO levaquin to stop Day #7. add singulair already on tosin Qualifiers: Asthma severity: unspecified severity Asthma persistence: intermittent Qualified Code(s): J45.21 - Mild intermittent asthma with (acute) exacerbation (3) Tobacco abuse Conclusion/Plan: Patient has history of tobacco abuse and smokes half a pack per day. Patient was advised to quit smoking and offered a nicotine patch. She is on one now. (4) Hyperglycemia Conclusion/Plan: The patient presents with significant hyperglycemia as she has a glucose of 300 on her blood chemistry. This may have been after she got a dose of IV steroids which may have caused the glucose to be significantly elevated. This is however of concern given the level of elevation in her blood glucose. A1c was 6.2% 12/09 so strong suspicion she has Type 2 DM, new diagnosis, and that the steroids we are giving her has made that worse. Continue SS insulin Glucose 260 today. Hope it goes down with reduced steroids.
[2017-12-13] MEDS ORDERED: MONTELUKAST 10 MG TABLET PO SCH (17:00)
[2017-12-13] MEDS: LORazepam 0.5 MG TABLET PO PRN (23:30)
[2017-12-14 08:11] VITALS: BP 110/68
[2017-12-14] MEDS: SACCHAROMYCES BOULARDII 250 MG CAPSULE PO SCH (08:18)
--- NOTE | 2017-12-14 08:20 | Discharge Plan ---
Discharge Plan Disposition: Home, Self Care Condition: Good Prescriptions: LORazepam [Ativan] 0.5 mg PO Q8HR PRN #21 tablet PRN Reason: Anxiety Fluticasone/Salmeterol [Advair 500-50 Diskus] 1 each IH BID #1 blst.w.dev levoFLOXacin [Levaquin] 750 mg PO DAILY #1 tablet [facility], Miscellaneous [Tablet Cutter] 1 each MC DAILY #1 each Montelukast [Singulair] 10 mg PO QPM #30 tablet Nicotine 7 mg Patch [Nicoderm] 1 each TOP Q24H #7 patch Prednisone 5 mg PO UD #42 tablet Diet: Regular Activity Restrictions: Activity as Tolerated Shower Restrictions: No Driving Restrictions: No Instruction Topics: Lorazepam tablets, Montelukast oral tablets, Levofloxacin tablets, Nicotine skin patches, Fluticasone Salmeterol inhalation powder, Prednisone tablets, Triggers Asthma Additional Instructions or Follow Up instructions: You were admitted to the hospital because of severe, severe wheezing. You have allergies, and this is the time of year that they particularly affect you. You also smoke. You took an unusually long time to respond to our therapy. We gave you high- dose IV steroids, nebulizers [id number], antibiotics, and it took 4 days before you really responded. You required BiPAP as well as high flow humidity oxygen to stabilize. You will still find yourself easily fatigued. Prone to coughing and wheezing. I have given you one more day of antibiotics to complete. I have also given you oral steroids to taper off over the next few days. I have started you on a new medication that is a long-acting bronchodilator as well as long acting inhaled steroid (Advair). You said you use to use this years ago. Respiratory therapy has taught you how to use it. Make sure you rinse your mouth after each use. Continue your short-acting rescue bronchodilator (albuterol) as needed. You can take that as many times a day as you need. I have also started you on Singulair to help with allergies. You will also go home on oxygen at 2 liters per minute. You need to wear it at rest AND with walking to bathroom, kitchen, etc. You will be set up on a concentrator to help with that. I anticipate that the need for oxygen will only last short while before you can be off of it. Please see your primary care provider Shaquille Lamas MD in the next week for follow-up. He will need to slowly bring down the dose of the Advair. I prescribed the highest dose and he will slowly bring the dose down over the next few weeks, if not months. I am also recommending that Dr. Lamas refer you for Pulmonology Consultation. Last but not least, please stop smoking. I have given you a weeks worth of a small dose of a sedative (ativan) and a nicotine patch to help with the strong cravings. No Smoking: If you smoke, Please STOP! Call for help. Follow-up with: Shaquille Lamas MD [Primary Care Provider] -
[2017-12-14] MEDS: IPRATROPIUM/ALBUTEROL 3 ML NEB INH SCH (09:40)
[2017-12-14] MEDS: NICOTINE 14 MG PATCH TOP SCH (09:48)
[2017-12-14] MEDS: CHLORHEXIDINE GLUCONATE 15 ML UDC PO SCH (09:48)
[2017-12-14] MEDS: ENOXAPARIN 40 MG/0.4 ML SYRINGE SUBQ SCH (10:06)
[2017-12-14] MEDS: SODIUM CHLORIDE FLUSH 0.9% 10 ML SYRINGE IVP SCH (10:06)
[2017-12-14] MEDS: levoFLOXacin 250 MG TABLET PO SCH (10:11)
[2017-12-14] MEDS: FEXOFENADINE 60 MG TABLET PO SCH (10:11)
--- NOTE | 2017-12-15 08:12 | DISCHARGE SUMMARY ---
Physician: Ruthie Hines MD DATE OF ADMISSION: 12/09/2017 DATE OF DISCHARGE: 12/14/2017 DISCHARGE DIAGNOSES 1. Acute respiratory failure with hypoxia. 2. Extrinsic asthma with acute exacerbation. 3. Tobacco abuse. 4. Type 2 diabetes mellitus, without complications, not on long-term insulin. DISCHARGE MEDICATIONS 1. Ativan 0.5 mg every 8 hours as needed for the first week after discharge to help with tobacco withdrawal. 2. Advair inhaler 500 for stress 250/50 one puff b.i.d. for the next month, new prescription. 3. Levaquin 750 mg daily x1 day. 4. Nasal cannula oxygen at 1-2 liters, new prescription 5. Singulair 10 mg p.o. daily, new prescription. 6. Nicotine patch 7 mg a day for the next month, new prescription. 7. Prednisone 5 mg tablets to start at 6 tablets a day for 2 days, then 5 tablets for 2 days, then 4 tablets for 2 days, then 3 tablets, then 2 tablets, and then 1 tablet. 8. Albuterol metered dose inhaler and nebulizer. PRINCIPAL PROCEDURES 1. Blood culture negative after 5 days. 2. Chest x-ray showing no acute cardiopulmonary process. 3. Preliminary echocardiogram showing left ventricular systolic function normal with an estimated ejection fraction of 70% to 75%. Normal diastology. No regional wall motion abnormalities. No valvular heart disease. Atrial sizes are normal. No evidence of pulmonary hypertension. HOSPITAL COURSE: Ms. Henriquez is a very pleasant 50-year-old female who has a history of strong seasonal allergies that hit her at the same time every year. It induces asthma, and for a couple of weeks every year, she is pretty bad. She shows up in the Emergency Room and will get nebulizer treatments and IV steroids, and she is usually able to be turned around and go home. With this episode, symptoms started a week ago. She started having increasing shortness of air and having to use her inhaler more and more frequently. She likes to be outdoors and was spending a lot of time outside in the last week, because the weather was nice. A couple of times her shortness of breath was so severe that she felt like she had to go to the Emergency Room, but decided against it. She has been having wheezing, dry cough, but denies fever, chills, chest congestion, lower extremity swelling, or paroxysmal nocturnal dyspnea. To make herself better she will take her inhaler, ProAir, and is able to get her breathing controlled to the point where she did not have to come to the Emergency Room, but for the last 2 nights it has been very bad, and tonight her shortness of breath was so severe it was not responding to the albuterol. In the Emergency Room, she was in severe respiratory distress. She came in by private vehicle with her boyfriend. She was tachypneic, and O2 saturation was 70%. She was tachycardic, hypertensive, and struggling to breathe and using all accessory muscles. She was put on BiPAP right away, because she looked like she was close to intubation. She was given [id number] nebulizer treatments and IV steroids and the patient began to stabilize. She was admitted to the ICU with acute respiratory failure with hypoxia secondary to extrinsic asthma exacerbation. The patient's lab work was all within normal limits. She did not have leukocytosis and troponins were negative. BNP was 18. Influenza swab was negative. Chest x-ray was negative for infiltrate. She took quite a bit of time to break her spasm. BiPAP lasted for 2 days, until the morning of the . Every time we tried to take her off to just eat or drink food, she would desaturate immediately, or if she took off the mask to go to the bedside commode, coughing and wheezing and severe shortness of breath would ensue. This was all in spite of being on empiric antibiotic therapy, nebulizers, and IV steroids. By the , she was able to come off BiPAP and go to high flow oxygen. She stayed on high flow oxygen and was not able to transition to nasal cannula until December 13. Again, coughing, laughing, getting up to go to the bathroom would immediately induce bronchospasm, wheezing, if not airway sounds at all, and we would start all over again with aggressive nebulizers. She was finally transitioned to nasal cannula on December 13 and stayed a nasal cannula. Initially 10 liters per minute and was able to get down to 1-2 liters a minute. On December 14 we did a desaturation test. At rest, her O2 saturation was 88% and she recovered to 92% at 1 liter per minute. With ambulation, she desaturated to 87% after 20 feet and required 2 liters a minute to bring her O2 saturation above 92% with ambulation. I explained to her that she will need oxygen to help her with her asthma. I do not anticipate this to be permanent, but more 60-90 days at most. In addition to tapering her steroids in the outpatient setting, I think she is a candidate for long-acting bronchodilator therapy. I prescribed maximum dose of Advair 500/50 b.i.d. I am asking her to see her primary care provider in the next 1-2 weeks and keep close contact with him. He will need to slowly wean her down from 500 to then 250, than 100. I am also wondering if she might be a candidate to see a make up artist. Tobacco abuse was addressed. All nurses on all shifts and both providers that took care of her explained that she needed to stop smoking. She would roll her eyes "I know, I know." She was on a 14 mg nicotine patch while in the hospital. I have discharged her to a 7 mg nicotine patch for the next month. In an effort to help her with the cravings and anxiety, I have also given her Ativan 0.5 mg for the first week to be used as needed. She only needs 1 more day of Levaquin to complete 7 days of empiric antibiotic therapy to help with this acute exacerbation, even though we found no infiltrate. Also noted during her stay was hyperglycemia. This patient has a history of gestational diabetes. Even before she received steroids, her random glucose was 310 and her A1c is 6.2%. While steroids during her hospital stay did not help this matter, she really does need to be followed up in the outpatient setting in case that she has developed type 2 diabetes mellitus that needs treatment more than dietary restriction. The patient was discharged in stable condition. DISCHARGE PHYSICAL EXAMINATION VITAL SIGNS: Temperature was 36.8, pulse is 95, respirations 16 and unlabored. Blood pressure 110/68. GENERAL: She is an alert, oriented, middle-aged white female who looks older than stated age. NECK: Supple, no adenopathy. LUNGS: Still quiet, but she has good air movement. The spasms of wheezing and coughing have been gone for at least 24 hours. HEART: PMI is normally placed with a regular rate and rhythm. No murmurs. Echo was done since she was not responding as quickly as we thought and an echo was negative for right-sided heart failure or pulmonary hypertension. ABDOMEN: Benign. EXTREMITIES: Warm without clubbing, cyanosis or edema. Greater than 30 minutes were spent in coordinating discharge. TD: 12/14/2017 17:39
== END 2017-12-14 11:47 | disposition home or self-care (01) | DRG 189 ==
LOC: ED 05:36 → ICU 05:56
PROVIDERS: ADMIT Internal Medicine; ATTEND Specialist
DX: J96.01 Acute respiratory failure with hypoxia (principal); J45.901 Unspecified asthma with (acute) exacerbation; F41.9 Anxiety disorder, unspecified; F17.210 Nicotine dependence, cigarettes, uncomplicated; E11.65 Type 2 diabetes mellitus with hyperglycemia; M19.90 Unspecified osteoarthritis, unspecified site; G89.29 Other chronic pain; M54.9 Dorsalgia, unspecified; Z79.51 Long term (current) use of inhaled steroids; Z79.899 Other long term (current) drug therapy
CPT/HCPCS: 36415; 36600; 71045; 80053; 80320; 81001; 81003; 82803; 83036; 83690; 83735; 83880; 84100; 84484; 85025; 87040; 87086; 87150; 87275; 87276; 93005; 93306; 94640; 94660; 94664; 94761; 96374; 99284

== ENCOUNTER 2017-12-29 11:18 | Outpatient (CLI) | payer MEDICAID ==
[2017-12-29 19:31] LABS: CALCIUM 9.2 mg/dL (8.5-10.3); CREATININE 0.8 mg/dL (0.4-1.0)
[2017-12-29 20:13] LABS: HB2 TOTAL 14.1 g/dL; HEMOGLOBIN A1C 0.73 g/dL; HEMOGLOBIN A1C % 6.9 % (4.6-6.2)
== END 2017-12-29 11:19 | disposition home or self-care (01) ==
LOC: LAB.N 11:18
PROVIDERS: ATTEND Family Medicine
DX: R73.9 Hyperglycemia, unspecified (principal)
CPT/HCPCS: 36415; 80048; 83036

== ENCOUNTER → 2018-06-03 | Outpatient (CLI) | payer MEDICAID ==
[2018-06-03 18:51] LABS: CALCIUM 8.9 mg/dL (8.5-10.3); CREATININE 0.7 mg/dL (0.4-1.0)
[2018-06-03 18:58] LABS: HB2 TOTAL 14.1 g/dL; HEMOGLOBIN A1C 0.67 g/dL; HEMOGLOBIN A1C % 6.5 % (4.6-6.2)
== END ==
LOC: LAB.N 08:00
PROVIDERS: ATTEND Family Medicine
DX: E11.9 Type 2 diabetes mellitus without complications (principal)
CPT/HCPCS: 36415; 80048; 83036

== ENCOUNTER 2020-02-15 07:15 | Outpatient (CLI) | payer MEDICAID | END 2020-02-15 07:16 | disposition critical access hospital (66) | LOC: EMS 07:15 | PROVIDERS: ATTEND Surgery | DX: R06.00 Dyspnea, unspecified (principal); J45.909 Unspecified asthma, uncomplicated | CPT/HCPCS: A0425; A0427 ==

== ENCOUNTER 2020-02-15 07:44 | Observation (INO) | payer MEDICAID ==
--- NOTE | 2020-02-15 07:59 | ED Physician Documentation ---
History of Present Illness - Stated complaint Stated Complaint: ASTHMA ATTACK - Chief complaint Chief Complaint: Resp - History obtained from History obtained from: Patient, EMS - History of Present Illness Timing: How many days ago (2) Pain level max: 0 Pain level now: 0 - Additonal information Additional information: 54-year-old female with a history of COPD states increasing difficulty breathing over the past 2 to 3 days. She has been out of her albuterol for the last 2 to 3 days as well. She states that she does not take any other medications at home. She is still a current smoker. No fevers. She states that she has had "bronchitis" for the past month. She saw her doctor for this. Not currently on antibiotics. No abdominal pain. No nausea or vomiting. She received 125 mg of Solu-Medrol with EMS in addition to 1 DuoNeb treatment and 4 albuterol treatments. Initially was 78% on room air. Review of Systems Ten Systems: 10 systems reviewed and negative Constitutional: denies: Fever, Chills Ears: denies: Ear pain Nose: denies: Rhinorrhea / runny nose, Congestion Respiratory: denies: Cough GI: denies: Nausea, Vomiting, Diarrhea Skin: denies: Rash Musculoskeletal: denies: Neck pain, Back pain Neurologic: denies: Headache PD PAST MEDICAL HISTORY - Past Medical History Cardiovascular: None Respiratory: Asthma Endocrine/Autoimmune: None GI: Diverticulitis SAP BASIS ADMINISTRATOR: None HEENT: None Musculoskeletal: Osteoarthritis, Chronic back pain Derm: None - Past Surgical History Past Surgical History: Yes /SAP BASIS ADMINISTRATOR: Oophrectomy - Present Medications Home Medications: Ambulatory Orders Medication Instructions Recorded Confirmed Albuterol Sulfate [Proair Hfa 1 puffs INH Q4H PRN 12/19/16 12/09/17 Inhaler] Albuterol 3 ml INH Q8H PRN 12/09/17 12/09/17 Fluticasone/Salmeterol [Advair 1 each IH BID #1 blst.w.dev 12/14/17 500-50 Diskus] LORazepam [Ativan] 0.5 mg PO Q8HR PRN #21 tablet 12/14/17 Medical Supply, Miscellaneous 1 each MC DAILY #1 each 12/14/17 [Tablet Cutter] Montelukast [Singulair] 10 mg PO QPM #30 tablet 12/14/17 Nicotine 7 mg Patch [Nicoderm] 1 each TOP Q24H #7 patch 12/14/17 Prednisone 5 mg PO UD #42 tablet 12/14/17 levoFLOXacin [Levaquin] 750 mg PO DAILY #1 tablet 12/14/17 - Allergies Allergies/Adverse Reactions: Allergies Allergy/AdvReac Type Severity Reaction Status Date / Time No Known Drug Allergies Allergy Verified 03/28/17 22:07 - Social History Does the pt smoke?: Yes Smoking Status: Current every day smoker Does the pt drink ETOH?: No Does the pt have substance abuse?: No - Immunizations Immunizations are current?: No Immunizations: TDAP >10years/unknown - POLST Patient has POLST: No POLST Status: Full Code PD ED PE NORMAL - Vitals Vital signs reviewed: Yes - General General: Alert and oriented X 3, No acute distress - HEENT HEENT: Moist mucous membranes - Neck Neck: Supple, no meningeal sign - Cardiac Cardiac: RRR, Strong equal pulses - Respiratory Respiratory: No respiratory distress, Other (diffuse wheezing bilaterally.) - Abdomen Abdomen: Soft, Non tender, Non distended - Derm Derm: Warm and dry - Extremities Extremities: No edema, No calf tenderness / cord - Neuro Neuro: Alert and oriented X 3 - Psych Psych: Normal mood, Normal affect Results - Vitals Vitals: Vital Signs - 24 hr 02/15/20 02/15/20 07:37 08:55 Temperature 36.8 C Heart Rate 117 H 78 Respiratory 28 H 24 Rate Blood Pressure 157/86 H O2 Saturation 88 L Oxygen O2 Source Room air Oxygen Flow Rate 2 - EKG (time done) 0820 Rate: Rate (enter#) (98) Rhythm: NSR Herman: Normal Intervals: Normal MD QRS: Normal Ischemia: Normal ST segments - Labs Labs: Laboratory Tests 02/15/20 02/15/20 08:05 08:05 WBC 12.3 H RBC 5.20 Hgb 15.7 Hct 48.8 H MCV 93.8 MCH 30.2 MCHC 32.2 RDW 13.1 Plt Count 354 MPV 10.1 Neut # (Auto) 7.7 H Lymph # (Auto) 3.2 [place] # (Auto) 0.9 Eos # (Auto) 0.3 Baso # (Auto) 0.1 Absolute Nucleated RBC 0.00 Nucleated RBC % 0.0 Sodium 136 Potassium 4.0 Chloride 99 L Carbon Dioxide 27 Anion Gap 10.0 BUN 18 Creatinine 0.9 Estimated GFR (MDRD) 65 L Glucose 181 H Calcium 9.3 Phosphorus 5.5 H Magnesium 2.2 Total Bilirubin 1.1 H AST 18 ALT 22 Alkaline Phosphatase 81 Total Protein 8.0 Albumin 4.4 Globulin 3.6 Albumin/Globulin Ratio 1.2 Lipase 27 - Rads (name of study) cxr Radiology: Prelim report reviewed, EMP read contemporaneously, See rad report (No acute pulmonary process. ) PD MEDICAL DECISION MAKING - ED course Complexity details: reviewed results, re-evaluated patient, considered differential, d/w patient ED course: 54-year-old female with COPD flare. Given Solu-Medrol and 5 nebulizer treatments with EMS. Continues to be hypoxic. Placed on 2 L of oxygen here and maintained around 88%. Increased to 4 L which improved her O2 saturation to approximately 90 to 91%. No fevers. Has a chronic cough. COVID swab was performed, though likely low risk. No indication for antibiotics at this time. Was given another nebulizer treatment here and continues to be hypoxic even at rest. She will need to be placed into the hospital. Discussed the case with Dr. Hines, hospitalist who accepts This document was made in part using voice recognition software. While efforts are made to proofread this document, sound alike and grammatical errors may occur. Departure - Departure Disposition: 66 [facility] DC/Xfer Clinical Impression: COPD exacerbation, Hypoxia, Tobacco abuse Condition: Stable
[2020-02-15 08:13] LABS: BASOPHILS # (AUTO) 0.1 10^3/uL (0.0-0.1); BASOPHILS % (AUTO) 0.8 %; EOSINOPHILS # (AUTO) 0.3 10^3/uL (0.0-0.7); EOSINOPHILS % (AUTO) 2.4 %; HGB - HEMOGLOBIN 15.7 g/dL (12.0-16.0); LYMPHOCYTES # (AUTO) 3.2 10^3/uL (1.5-3.5); LYMPHOCYTES % (AUTO) 25.8 %; MEAN CORPUSCULAR HEMOGLOBIN 30.2 pg (27.0-31.0); MEAN CORPUSCULAR HGB CONC 32.2 g/dL (32.0-36.0); MEAN CORPUSCULAR VOLUME 93.8 fL (81.0-99.0); MEAN PLATELET VOLUME 10.1 fL (7.9-10.8); MONOCYTES # (AUTO) 0.9 10^3/uL (0.0-1.0); MONOCYTES % (AUTO) 7.7 %; NEUTROPHILS # (AUTO) 7.7 10^3/uL (1.5-6.6); NEUTROPHILS % (AUTO) 62.7 %; PLT - PLATELET COUNT 354 10^3/uL (130-450); RED CELL DISTRIBUTION WIDTH 13.1 % (12.0-15.0); WHITE BLOOD COUNT 12.3 x10^3/uL (4.8-10.8)
[2020-02-15 08:23] LABS: ALBUMIN 4.4 g/dL (3.2-5.5); ALBUMIN/GLOBULIN RATIO 1.2 (1.0-2.2); BILIRUBIN,TOTAL 1.1 mg/dL (0.2-1.0); CALCIUM 9.3 mg/dL (8.5-10.3); CREATININE 0.9 mg/dL (0.4-1.0); MAGNESIUM 2.2 mg/dL (1.7-2.8); PHOSPHORUS 5.5 mg/dL (2.5-4.6)
[2020-02-15] MEDS ORDERED: ALBUTEROL 1 PUFF INH STA ×2 (08:25→10:22)
--- NOTE | 2020-02-15 08:47 | XRAY Report ---
PROCEDURE: Chest 1 View X-Ray INDICATIONS: COPD, cough TECHNIQUE: One view of the chest was acquired. COMPARISON: Chest x-ray 12/09/2017 FINDINGS: Surgical changes and devices: None. Lungs and pleura: No pleural effusions or pneumothorax. Lungs are clear. Mediastinum: Mediastinal contours appear normal. Heart size is normal. Bones and chest wall: No suspicious bony lesions. Overlying soft tissues appear unremarkable. IMPRESSION: No acute pulmonary process. Reviewed by: Landy Ren MD on 02/15/2020 8:45 AM PDT Approved by: Landy Rne MD on 02/15/2020 8:45 AM PDT Station ID: [id number]
[2020-02-15] MEDS ORDERED: ONDANSETRON 4 MG/2 ML VIAL IVP PRN (10:31)
[2020-02-15] MEDS ORDERED: ALBUTEROL NEB 2.5 MG/3 ML INH PRN ×2 (10:36→13:04)
[2020-02-15] MEDS ORDERED: LORazepam 0.5 MG TABLET PO PRN (10:40)
[2020-02-15] MEDS ORDERED: IPRATROPIUM/ALBUTEROL 3 ML NEB INH SCH (11:00)
--- NOTE | 2020-02-15 11:12 | HISTORY & PHYSICAL EXAMINATION ---
Chief Complaint - Chief Complaint Chief Complaint: SOB History of Present Illness - History of Present Illness HPI Comment/Other: This is a 54-year-old female with a medical history of COPD, asthma, current smoker, osteoarthritis and chronic pain, who present ER complaint of increasing difficulty breathing over the past 2 to 3 days. She report she have cough and shortness of breath for recently couple of days, but without fever or chilling or chest pain. Patient report She has been out of her albuterol for the last 2 to 3 days. She is still a current smoker. She reported she smoking 1 pack for 3 days now. She states that she does not take any other medications at home. She denies abdominal pain, nausea or vomiting. Initially she was 78% sats on room air. she did not have oxygen at home. Chest x-ray was unremarkable in the ER. Routine laboratory test show unremarkable except slightly increased WBC. Patient is afebrile, with tachycardia and slightly elevated blood pressure and dyspneic with respiration rate 28 and with 88% sats in room air. Patient was admitted to medical floor for further management. Discussed the care goal with the patient, patient request full code. History - Past Medical History Cardiovascular: reports: None Respiratory: reports: Asthma Neuro: reports: None Endocrine/Autoimmune: reports: None GI: reports: Diverticulitis BRIDAL CONSULTANT: reports: None : reports: None HEENT: reports: None Musculoskeletal: reports: Osteoarthritis, Chronic back pain Derm: reports: None MRSA Hx?: No - Past Surgical History /BRIDAL CONSULTANT: reports: Oophrectomy - Family & Social History Family History: Mother: Alive and Well, Father: (Lung cancer), Cancer, Other family: Diabetes, Type 2 (Grandmother) Social History Notes: The patient lives in [place] with her boyfriend. She has 2 children. She is originally from [place] and moved up here a number of years ago. The patient continues to smoke half a pack a day she has been smoking since her teens. She does not drink alcohol or use any illicit drugs. - Substance History Use: Uses substance without health or social issues: Tobacco - POLST Patient has POLST: No POLST Status: Full Code Meds/Allgy - Home Medications Home Medications: Ambulatory Orders Medication Instructions Recorded Confirmed Albuterol Sulfate [Proair Hfa 1 puffs INH Q4H PRN 12/19/16 12/09/17 Inhaler] Albuterol 3 ml INH Q8H PRN 12/09/17 12/09/17 Fluticasone/Salmeterol [Advair 1 each IH BID #1 blst.w.dev 12/14/17 500-50 Diskus] LORazepam [Ativan] 0.5 mg PO Q8HR PRN #21 tablet 12/14/17 Medical Supply, Miscellaneous 1 each MC DAILY #1 each 12/14/17 [Tablet Cutter] Montelukast [Singulair] 10 mg PO QPM #30 tablet 12/14/17 Nicotine 7 mg Patch [Nicoderm] 1 each TOP Q24H #7 patch 12/14/17 Prednisone 5 mg PO UD #42 tablet 12/14/17 levoFLOXacin [Levaquin] 750 mg PO DAILY #1 tablet 12/14/17 - Allergies Allergies/Adverse Reactions: Allergies Allergy/AdvReac Type Severity Reaction Status Date / Time No Known Drug Allergies Allergy Verified 03/28/17 22:07 Review of Systems - Constitutional Constitutional: denies: Fatigue, Fever, Chills, Malaise, Weakness, Poor appetite, Diaphoresis, Night sweats - Eyes Eyes: denies: Pain, Blurred vision, Spots in vision, Field loss, Vision loss, Dipolpia - Ears, Nose & Throat Ears, Nose & Throat: denies: Ear pain, Hearing loss, Hearing aids, Tinnitus, Nasal pain, Nosebleeds, Nasal congestion, Mouth lesions, Bleeding gums - Cardiovascular Cariovascular: reports: Exertional dyspnea, Decr. exercise tolerance. denies: Irregular heart rate, Palpitations, Chest pain, Edema, Lightheadedness, Syncope - Respiratory Respiratory: reports: Cough, Wheezing, SOB with exertion. denies: Sputum production, Snoring, Hemoptysis, Orthopnea, SOB at rest - Gastrointestinal Gastrointestinal: denies: Abdominal pain, Abdominal distention, Constipation, Diarrhea, Rectal bleeding, Black stools, Bloody stools, Nausea, Vomiting - Genitourinary Genitourinary: denies: Dysuria, Urgency, Hematuria, Incontinence, Flank pain - Musculoskeletal Musculoskeletal: denies: Muscle pain, Back pain, Muscle aches, Stiffness, Limited range of motion, Muscle weakness, Joint pain - Integumentary Integumentary: denies: Rash, Lesions, Dryness, Lumps, Pigment changes - Neurological Neurological: denies: General weakness, Focal weakness, Headache, Dizziness, Numbness, Memory problems, Pre-existing deficit, Abnormal gait, Seizures, Incoordination, Slurred speech - Psychiatric Psychiatric: denies: Depression, Anxiety, Suicidal, Delusions, Hallucinations, Homicidal - Endocrine Endocrine: denies: Polyuria, Polydypsia, Polyphagia - Hematologic/Lymphatic Hematologic/Lymphatic: denies: Anemia, Bruising, Petechiae, Lymphadenopathy, Bleeding tendencies, Recurrent infections Exam - Vital Signs Vital Signs: Vital Signs x48h Temp Pulse Resp BP Pulse Ox 02/15/20 10:30 100 22 02/15/20 08:55 78 24 02/15/20 07:56 36.1 C L 106 H 20 141/80 H 95 02/15/20 07:37 36.8 C 117 H 28 H 157/86 H 88 L - Physical Exam General Appearance: positive: No acute distress, Alert. negative: Lethargic Eyes Bilateral: positive: Normal inspection, PERRL, No lid inflammation ENT: positive: ENT inspection nml, No signs of dehydration. negative: Purulent nasal drainage, Dry mucous membranes Neck: positive: Nml inspection, Thyroid nml, No JVD, Trachea midline. negative: Thyromegaly, Stiff neck, Tracheal deviation Respiratory: positive: Chest non-tender, No respiratory distress, Wheezes. negative: Breath sounds nml, Rales, Rhonchi Cardiovascular: positive: Regular rate & rhythm, No murmur, No gallop, Tachycardia. negative: Bradycardia, Systolic murmur, Diastolic murmur Peripheral Pulses: positive: 2+ Abdomen: positive: Non-tender, No organomegaly, Nml bowel sounds, No distention. negative: Tenderness, Guarding, Rebound Back: positive: Nml inspection. negative: CVA tenderness (R), CVA tenderness (L) Skin: positive: Color nml, No rash, Warm, Dry. negative: Cyanosis, Diaphoresis, Pallor Extremities: positive: Non-tender, Full ROM, Nml appearance. negative: Calf tenderness, Danny's sign/cords Neurologic/Psychiatric: positive: Oriented x3, Motor nml, Sensation nml. negative: Weakness, Sensory loss, Facial droop, Slurred/abnml speech, Depressed mood/affect Sepsis Event Note (H) - Evaluation Current Stage of Sepsis: Ruled out Conclusion/Plan - Problem List (1) Acute respiratory failure with hypoxia Conclusion/Plan: Patient has 88% sats on room air with respiratory rate 28 and tachycardia in the admission. Patient does not have oxygen in the home. Patient has a history of COPD, she reported she is run out of albuterol medication. Patient has likely COPD with exacerbation To cause her hypoxia. We will give the patient Solu-Medrol intravenous, we will give the patient hillary thing treatment of albuterol puff, because the patient was test covid 19, We will hold nebulization treatment. Patient already feel significantly better on today After treatment (2) COPD exacerbation Conclusion/Plan: As discussed above, it is likely patient has COPD with Exacerbation. We will have Solu-Medrol IV and breathing treatment for patient. We will provide oxygen as needed (3) Tobacco abuse Conclusion/Plan: Patient reported she still smoke 1 package for 3 days, advised the patient quit smoking, Resume home nicotine patch - Lab Results Fish Bones: 02/15/20 08:05 02/15/20 08:05 Core Measures - Anticipated LOS I expect patient to be DC'd or transferred within 96 hours.: Yes - DVT/VTE - Prophylaxis VTE/DVT Device ordered at admit?: Yes VTE/DVT Prophylaxis med ordered at admit?: Yes
[2020-02-15] MEDS: methylPREDNISolone SUCCINATE 125 MG/2 ML VIAL IVP SCH ×3 (12:51→21:06)
[2020-02-15] MEDS: SODIUM CHLORIDE FLUSH 0.9% 10 ML SYRINGE IVP PRN (12:52)
[2020-02-15] MEDS: NICOTINE 7 MG PATCH TOP SCH (12:54)
[2020-02-15] MEDS: ACETAMINOPHEN 325 MG TABLET PO PRN (13:04)
[2020-02-15] MEDS: ALBUTEROL 1 PUFF INH PRN ×2 (13:25→17:38)
[2020-02-15] MEDS: SODIUM CHLORIDE FLUSH 0.9% 10 ML SYRINGE IVP SCH (16:36)
[2020-02-15 17:01] LABS: BILIRUBIN,URINE NEGATIVE (NEGATIVE); GLUCOSE, URINE (UA) 500 mg/dL (NEGATIVE); KETONES,URINE (UA) NEGATIVE (NEGATIVE); LEUKOCYTE ESTERASE, URINE NEGATIVE (NEGATIVE); NITRITE,URINE NEGATIVE (NEGATIVE); OCCULT BLOOD,URINE NEGATIVE (NEGATIVE); PROTEIN,URINE NEGATIVE (NEGATIVE); UROBILINOGEN,URINE 0.2 (NORMAL) E.U./dL (NORMAL)
--- NOTE | 2020-02-15 17:07 | PHARMACY PROGRESS NOTE ---
- Best Possible Medication History Admit Date and Time: 02/15/20 1031 Processed by: Pharmacy Medication History completed: Yes Patient Interview: Completed Secondary Source(s): Pharmacy records (PATIENT INTERVIEWED BY MACHINE UMBRELLA TIPPER. PATIENT CONFIRMED HOME MEDICATIONS ), Insurance records As the person ultimately responsible for medication therapy, providers are able to order a medication from an existing home medication list in [facility] via the "Reconcile Routine" prior to Confirmation of that medication by mission support specialist. Such practice is discouraged except when the physician, in their clinical judgment, deems that a medical need exists for a medication without regard to previous use.
[2020-02-15 17:13] LABS: CLARITY,URINE CLEAR (CLEAR)
[2020-02-15 17:14] LABS: BACTERIA,URINE None Seen /HPF (None Seen); RBC,URINE None Seen /HPF (0-5); SQUAMOUS EPITHELIAL CELL,UR NONE SEEN (<= Few)
[2020-02-15] MEDS ORDERED: BUDESONIDE 0.5 MG/2 ML NEB INH SCH (19:00)
[2020-02-15] MEDS ORDERED: MONTELUKAST 10 MG TABLET PO SCH (21:00)
[2020-02-16] MEDS: SODIUM CHLORIDE FLUSH 0.9% 10 ML SYRINGE IVP SCH ×3 (01:06→17:01)
[2020-02-16] MEDS: ALBUTEROL 1 PUFF INH PRN ×4 (01:26→21:45)
[2020-02-16 05:46] LABS: BASOPHILS # (AUTO) 0.1 10^3/uL (0.0-0.1); BASOPHILS % (AUTO) 0.3 %; EOSINOPHILS # (AUTO) 0.2 10^3/uL (0.0-0.7); EOSINOPHILS % (AUTO) 1.4 %; HGB - HEMOGLOBIN 14.9 g/dL (12.0-16.0); LYMPHOCYTES # (AUTO) 1.2 10^3/uL (1.5-3.5); LYMPHOCYTES % (AUTO) 7.4 %; MEAN CORPUSCULAR HEMOGLOBIN 29.6 pg (27.0-31.0); MEAN CORPUSCULAR HGB CONC 31.8 g/dL (32.0-36.0); MEAN PLATELET VOLUME 10.2 fL (7.9-10.8); MONOCYTES # (AUTO) 0.4 10^3/uL (0.0-1.0); MONOCYTES % (AUTO) 2.8 %; NEUTROPHILS % (AUTO) 87.5 %; PLT - PLATELET COUNT 368 10^3/uL (130-450); RED BLOOD COUNT 5.03 10^6/uL (4.20-5.40); RED CELL DISTRIBUTION WIDTH 13.1 % (12.0-15.0)
[2020-02-16 05:56] LABS: CALCIUM 9.3 mg/dL (8.5-10.3); CREATININE 0.7 mg/dL (0.4-1.0)
[2020-02-16] MEDS: methylPREDNISolone SUCCINATE 125 MG/2 ML VIAL IVP SCH ×3 (06:04→21:53)
[2020-02-16] MEDS: SODIUM CHLORIDE FLUSH 0.9% 10 ML SYRINGE IVP PRN ×2 (06:04→14:48)
[2020-02-16] MEDS: PANTOPRAZOLE 40 MG TABLET PO SCH (06:04)
[2020-02-16] MEDS ORDERED: INSULIN ASPART 300 UNIT/3 ML PEN SUBQ SCH ×2 (08:00→17:00)
[2020-02-16] MEDS: INSULIN GLARGINE 300 UNIT/3 ML PEN SUBQ SCH (09:33)
[2020-02-16] MEDS: NICOTINE 7 MG PATCH TOP SCH (09:34)
[2020-02-16] MEDS: ENOXAPARIN 40 MG/0.4 ML SYRINGE SUBQ SCH (09:34)
[2020-02-16] MEDS ORDERED: INSULIN ASPART 300 UNIT/3 ML PEN SUBQ ONE (11:12)
[2020-02-16] MEDS: INSULIN ASPART 300 UNIT/3 ML PEN SUBQ SCH ×3 (12:10→21:54)
[2020-02-16] MEDS: ACETAMINOPHEN 325 MG TABLET PO PRN (12:10)
[2020-02-16] MEDS ORDERED: LORazepam 0.5 MG TABLET PO PRN (15:49)
--- NOTE | 2020-02-16 15:58 | PROVIDER PROGRESS NOTE ---
Assessment/Plan - Problem List (1) Acute respiratory failure with hypoxia Assessment/Plan: 02/15 Patient reported she feel better today. But she developed sinus tachycardia this afternoon. She had 93% sats on 1 L of oxygen, she reported she take some oxygen at home from her family member when she feel difficulty breathing. Patient might need oxygen at home when plan to discharge patient. Patient's lung sounds is better than yesterday,We will trended down intravenous Solu-Medrol. Unfortunately patient's covid 19 test did not come back and patient cannot be treated with DuoNeb with nebulization, Patient only has albuterol puff for breath treatment.this will extend the time for pt's healing of COPD. Patient has 88% sats on room air with respiratory rate 28 and tachycardia in the admission. Patient does not have oxygen in the home. Patient has a history of COPD, she reported she is run out of albuterol medication. Patient has likely COPD with exacerbation To cause her hypoxia. We will give the patient Solu-Medrol intravenous, we will give the patient breathing treatment of albuterol puff, because the patient was test covid 19, We will hold nebulization treatment. Patient already feel significantly better on today After treatment (2) COPD exacerbation Conclusion/Plan: As discussed above, it is likely patient has COPD with Exacerbation. We will hav e Solu-Medrol IV and breathing treatment for patient. We will provide oxygen as needed (3) Tobacco abuse Conclusion/Plan: Patient reported she still smoke 1 package for 3 days, advised the patient quit smoking, Resume home nicotine patch (4)diabetes Patient's A1c is 7.1 on today, patient has never the diagnosis with a diabetic. Patient report whole her family member had a diabetic, She was not surprised she is diabetic. We will start slide scale, ACHS to check patient glucose level, hypoglycemic protocol. RN sanitation supervisor was consulted. - Current Meds Current Meds: Current Medications Generic Name Dose Route Start Last Admin Trade Name Freq PRN Reason Stop Dose Admin Acetaminophen 650 mg 02/15/20 10:31 02/16/20 12:10 Tylenol PO 650 mg Q4HR PRN Administration Pain 1 to 4 Albuterol 2 puffs 02/15/20 13:15 02/16/20 12:03 Mdi: Albuterol INH 2 puffs Q2H PRN Administration Wheezing Enoxaparin Sodium 40 mg 07/23/20 09:00 02/16/20 09:34 Lovenox SUBQ 40 mg DAILY ALVIN Administration Insulin Aspart 3 - 11 unit 02/16/20 12:00 02/16/20 12:10 Novolog SUBQ 11 unit 0800,1200,1700,2100 ALVIN Administration Protocol Insulin Glargine 5 unit 02/16/20 08:00 02/16/20 09:33 Lantus Solostar SUBQ 5 unit QDBREAKFAST ALVIN Administration Methylprednisolone Sodium Succinate 60 mg 02/16/20 14:00 02/16/20 14:48 Solu-Medrol (125mg Vial) IVP 60 mg TID ALVIN Administration Nicotine 1 patch 02/15/20 11:00 02/16/20 09:34 Nicoderm TOP 1 patch DAILY ALVIN Administration Pantoprazole Sodium 40 mg 02/16/20 07:00 02/16/20 06:04 Protonix PO 40 mg QDAC ALVIN Administration Sodium Chloride 10 ml 02/15/20 10:31 02/16/20 14:48 Normal Saline Flush 0.9% IVP 10 ml PRN PRN Administration NEEDED PER PROVIDER ORDERS Sodium Chloride 10 ml 02/15/20 17:00 02/16/20 09:35 Normal Saline Flush 0.9% IVP 10 ml 0100,0900,1700 ALVIN Administration - Lab Result Fish Bone Diagrams: 02/16/20 05:14 02/16/20 05:14 - Additional Planning My Orders: My Active Orders 02/15/20 17:00 Sodium Chloride Flush 0.9% [Normal Saline Flush 0.9%] 10 ml IVP 0100,0900,1700 02/15/20 17:06 Isolation [Infection Precautions] [RC] QSHIFT 02/16/20 optical dispenser Consult [CONS] Routine 02/16/20 07:00 Pantoprazole [Protonix] 40 mg PO QDAC 02/16/20 07:49 Blood Glucose Checks - Eating [RC] 0800,1200,1700,2100 Initiate Hypoglycemia Protocol [RC] .protocol 02/16/20 07:52 Diabetic Education [RC] ONCE 02/16/20 08:00 Insulin Glargine [Lantus Solostar] 5 unit SUBQ QDBREAKFAST 02/16/20 09:00 Enoxaparin [Lovenox] 40 mg SUBQ DAILY 02/16/20 10:40 Out of bed 4+ hours [RC] QID 02/16/20 12:00 Insulin Aspart [NovoLOG] 3 - 11 unit SUBQ 0800,1200,1700,2100 02/16/20 14:00 methylPREDNISolone SUCCINATE [SOLU-Medrol (125MG VIAL)] 60 mg IVP TID 02/16/20 15:49 LORazepam [Ativan] 0.5 mg PO Q6H PRN 02/16/20 Dinner Carb-controlled Diet [DIET] 02/16/20 17:00 Insulin Aspart [NovoLOG] 5 unit SUBQ QDDINNER 02/16/20 21:00 Insulin Glargine [Lantus Solostar] 10 unit SUBQ QPM 02/17/20 05:00 BMP - BASIC METABOLIC PANEL [CHEM] DAILYLAB CBC - COMP BLD CT W/AUTO DIFF [HEME] DAILYLAB 02/18/20 05:00 BMP - BASIC METABOLIC PANEL [CHEM] DAILYLAB CBC - COMP BLD CT W/AUTO DIFF [HEME] DAILYLAB 02/19/20 05:00 BMP - BASIC METABOLIC PANEL [CHEM] DAILYLAB CBC - COMP BLD CT W/AUTO DIFF [HEME] DAILYLAB Subjective - Subjective Patient Reports: Feeling Better Objective Vital Signs: Vital Signs - 24 hr 02/15/20 02/15/20 02/15/20 15:52 17:44 21:00 Temperature 36.5 C 36.4 C L Heart Rate 103 H Heart Rate [ 94 100 Brachial] Heart Rate [ Monitoring electrodes] Respiratory 16 20 20 Rate Blood Pressure 125/62 [Left Brachial artery] Blood Pressure 140/79 H [Right Brachial artery] O2 Saturation 94 96 02/16/20 02/16/20 02/16/20 00:35 01:18 04:19 Temperature 36.6 C 36.9 C Heart Rate 111 H Heart Rate [ 98 99 Brachial] Heart Rate [ Monitoring electrodes] Respiratory 16 22 18 Rate Blood Pressure [Left Brachial artery] Blood Pressure 131/77 H 126/71 [Right Brachial artery] O2 Saturation 95 92 02/16/20 02/16/20 02/16/20 07:43 07:59 11:11 Temperature 36.9 C 37.1 C Heart Rate 98 Heart Rate [ 97 111 H Brachial] Heart Rate [ Monitoring electrodes] Respiratory 24 18 20 Rate Blood Pressure 120/62 [Left Brachial artery] Blood Pressure 125/72 [Right Brachial artery] O2 Saturation 93 92 02/16/20 02/16/20 12:00 14:12 Temperature Heart Rate 113 H Heart Rate [ Brachial] Heart Rate [ 105 H Monitoring electrodes] Respiratory 18 Rate Blood Pressure [Left Brachial artery] Blood Pressure [Right Brachial artery] O2 Saturation 93 Oxygen O2 Source Nasal cannula Oxygen Flow Rate 2 I&O (Last 24 Hrs): Intake and Output Totals x24h 02/14/20 02/15/20 02/16/20 23:59 23:59 23:59 Intake Total 1130 970 Output Total 300 1400 Balance 830 -430 General: Alert, Oriented x3, Mild distress HEENT: Atraumatic Neck: Supple Neuro: Alert, Non Focal, Oriented Times 3 Cardiovascular: Regular rate, Normal S1, Normal S2 Respiratory: Chest non-tender, No respiratory distress Abdomen: Normal bowel sounds, Soft, No tenderness Extremities: No edema, Normal pulses - Results Results: Laboratory Results WBC 16.0 x10^3/uL (4.8-10.8) H 02/16/20 05:14 RBC 5.03 10^6/uL (4.20-5.40) 02/16/20 05:14 Hgb 14.9 g/dL (12.0-16.0) 02/16/20 05:14 Hct 46.8 % (37.0-47.0) 02/16/20 05:14 MCV 93.0 fL (81.0-99.0) 02/16/20 05:14 MCH 29.6 pg (27.0-31.0) 02/16/20 05:14 MCHC 31.8 g/dL (32.0-36.0) L 02/16/20 05:14 RDW 13.1 % (12.0-15.0) 02/16/20 05:14 Plt Count 368 10^3/uL (130-450) 02/16/20 05:14 MPV 10.2 fL (7.9-10.8) 02/16/20 05:14 Neut # (Auto) 14.0 10^3/uL (1.5-6.6) H 02/16/20 05:14 Lymph # (Auto) 1.2 10^3/uL (1.5-3.5) L 02/16/20 05:14 [place] # (Auto) 0.4 10^3/uL (0.0-1.0) 02/16/20 05:14 Eos # (Auto) 0.2 10^3/uL (0.0-0.7) 02/16/20 05:14 Baso # (Auto) 0.1 10^3/uL (0.0-0.1) 02/16/20 05:14 Absolute Nucleated RBC 0.00 x10^3/uL 02/16/20 05:14 Nucleated RBC % 0.0 /100WBC 02/16/20 05:14 Sodium 134 mmol/L (135-145) L 02/16/20 05:14 Potassium 4.9 mmol/L (3.5-5.0) 02/16/20 05:14 Chloride 97 mmol/L (101-111) L 02/16/20 05:14 Carbon Dioxide 26 mmol/L (21-32) 02/16/20 05:14 Anion Gap 11.0 (6-13) 02/16/20 05:14 BUN 16 mg/dL (6-20) 02/16/20 05:14 Creatinine 0.7 mg/dL (0.4-1.0) 02/16/20 05:14 Estimated GFR (MDRD) 87 (>89) L 02/16/20 05:14 Glucose 285 mg/dL (70-100) H 02/16/20 05:14 Calcium 9.3 mg/dL (8.5-10.3) 02/16/20 05:14 Phosphorus 5.5 mg/dL (2.5-4.6) H 02/15/20 08:05 Magnesium 2.2 mg/dL (1.7-2.8) 02/15/20 08:05 Total Bilirubin 1.1 mg/dL (0.2-1.0) H 02/15/20 08:05 AST 18 IU/L (10-42) 02/15/20 08:05 ALT 22 IU/L (10-60) 02/15/20 08:05 Alkaline Phosphatase 81 IU/L (42-121) 02/15/20 08:05 Total Protein 8.0 g/dL (6.7-8.2) 02/15/20 08:05 Albumin 4.4 g/dL (3.2-5.5) 02/15/20 08:05 Globulin 3.6 g/dL (2.1-4.2) 02/15/20 08:05 Albumin/Globulin Ratio 1.2 (1.0-2.2) 02/15/20 08:05 Lipase 27 U/L (22-51) 02/15/20 08:05 Urine Color YELLOW 02/15/20 16:52 Urine Clarity CLEAR (CLEAR) 02/15/20 16:52 Urine pH 5.0 PH (5.0-7.5) 02/15/20 16:52 Ur Specific [place] >=1.030 (1.002-1.030) H 02/15/20 16:52 Urine Protein NEGATIVE mg/dL (NEGATIVE) 02/15/20 16:52 Urine Glucose (UA) 500 mg/dL (NEGATIVE) H 02/15/20 16:52 Urine Ketones NEGATIVE mg/dL (NEGATIVE) 02/15/20 16:52 Urine Occult Blood NEGATIVE (NEGATIVE) 02/15/20 16:52 Urine Nitrite NEGATIVE (NEGATIVE) 02/15/20 16:52 Urine Bilirubin NEGATIVE (NEGATIVE) 02/15/20 16:52 Urine Urobilinogen 0.2 (NORMAL) E.U./dL (NORMAL) 02/15/20 16:52 Ur Leukocyte Esterase NEGATIVE (NEGATIVE) 02/15/20 16:52 Urine RBC None Seen /HPF (0-5) 02/15/20 16:52 Urine WBC 0-3 /HPF (0-5) 02/15/20 16:52 Ur Squamous Epith Cells NONE SEEN (<= Few) 02/15/20 16:52 Urine Bacteria None Seen /HPF (None Seen) 02/15/20 16:52 Urine Culture Comments NOT INDICATED 02/15/20 16:52 Ref Lab Test Result REPORT 02/15/20 07:56 Sepsis Event Note (H) - Evaluation Current Stage of Sepsis: Ruled out ABX Reporting Has patient been on IV antibiotics over the past 48 hours?: No Current Medications - Current Medications Current Medications: Active Medications Acetaminophen (Tylenol) 650 mg PO Q4HR PRN PRN Reason: Pain 1 to 4 Last Admin: 02/16/20 12:10 Dose: 650 mg Documented by: Albuterol (Mdi: Albuterol) 2 puffs INH Q2H PRN PRN Reason: Wheezing Last Admin: 02/16/20 12:03 Dose: 2 puffs Documented by: Enoxaparin Sodium (Lovenox) 40 mg SUBQ DAILY [facility] Last Admin: 02/16/20 09:34 Dose: 40 mg Documented by: Insulin Aspart (Novolog) 3 - 11 unit SUBQ 0800,1200,1700,2100 [facility]; Protocol Last Admin: 02/16/20 12:10 Dose: 11 unit Documented by: Insulin Aspart (Novolog) 5 unit SUBQ QDDINNER [facility]; Protocol Insulin Glargine (Lantus Solostar) 5 unit SUBQ QDBREAKFAST [facility] Last Admin: 02/16/20 09:33 Dose: 5 unit Documented by: Insulin Glargine (Lantus Solostar) 10 unit SUBQ QPM [facility] Lorazepam (Ativan) 0.5 mg PO Q6H PRN PRN Reason: Anxiety Methylprednisolone Sodium Succinate (Solu-Medrol (125mg Vial)) 60 mg IVP TID [facility] Last Admin: 02/16/20 14:48 Dose: 60 mg Documented by: Nicotine (Nicoderm) 1 patch TOP DAILY [facility] Last Admin: 02/16/20 09:34 Dose: 1 patch Documented by: Ondansetron HCl (Zofran Inj) 4 mg IVP Q6HR PRN PRN Reason: Nausea / Vomiting Pantoprazole Sodium (Protonix) 40 mg PO QDAC [facility] Last Admin: 02/16/20 06:04 Dose: 40 mg Documented by: Sodium Chloride (Normal Saline Flush 0.9%) 10 ml IVP PRN PRN PRN Reason: NEEDED PER PROVIDER ORDERS Last Admin: 02/16/20 14:48 Dose: 10 ml Documented by: Sodium Chloride (Normal Saline Flush 0.9%) 10 ml IVP 0100,0900,1700 [facility] Last Admin: 02/16/20 09:35 Dose: 10 ml Documented by: Albuterol Sulfate [Proair Hfa Inhaler] 1 puffs INH Q4H PRN 12/19/16 Albuterol 3 ml INH Q8H PRN 12/09/17
[2020-02-16] MEDS ORDERED: INSULIN GLARGINE 300 UNIT/3 ML PEN SUBQ SCH (21:00)
[2020-02-17] MEDS: SODIUM CHLORIDE FLUSH 0.9% 10 ML SYRINGE IVP SCH ×2 (00:46→08:02)
[2020-02-17] MEDS: ALBUTEROL 1 PUFF INH PRN ×2 (05:39→08:45)
[2020-02-17 05:46] LABS: BASOPHILS % (AUTO) 0.3 %; EOSINOPHILS % (AUTO) 0.1 %; HGB - HEMOGLOBIN 15.2 g/dL (12.0-16.0); LYMPHOCYTES % (AUTO) 4.7 %; MEAN CORPUSCULAR HEMOGLOBIN 30.7 pg (27.0-31.0); MEAN CORPUSCULAR HGB CONC 32.4 g/dL (32.0-36.0); MEAN CORPUSCULAR VOLUME 94.7 fL (81.0-99.0); MEAN PLATELET VOLUME 10.1 fL (7.9-10.8); MONOCYTES % (AUTO) 2.3 %; PLT - PLATELET COUNT 336 10^3/uL (130-450); RED BLOOD COUNT 4.95 10^6/uL (4.20-5.40); RED CELL DISTRIBUTION WIDTH 13.2 % (12.0-15.0); WHITE BLOOD COUNT 20.7 x10^3/uL (4.8-10.8)
[2020-02-17 05:48] LABS: ABNORMAL LYMPHS % (MANUAL) 0 %; BAND NEUTROPHILS % (MANUAL) 0 %
[2020-02-17 05:53] LABS: CALCIUM 9.2 mg/dL (8.5-10.3); CREATININE 0.7 mg/dL (0.4-1.0)
[2020-02-17 06:18] LABS: DIFFERENTIAL COMMENT MANUAL DIFFERENTIAL; LYMPHOCYTES # (MANUAL) 0.8 10^3/uL (1.5-3.5); LYMPHOCYTES % (MANUAL) 4 %; MONOCYTES # (MANUAL) 0.2 10^3/uL (0.0-1.0); PLATELET ESTIMATE, MANUAL NORMAL (130-450,000) (NORMAL); PLATELET MORPHOLOGY NORMAL APPEARANCE (NORMAL); RBC MORPHOLOGY (MULTIPLE) NORMAL APPEARANCE (NORMAL)
[2020-02-17] MEDS: PANTOPRAZOLE 40 MG TABLET PO SCH (06:26)
[2020-02-17] MEDS: methylPREDNISolone SUCCINATE 125 MG/2 ML VIAL IVP SCH ×2 (06:26→14:35)
[2020-02-17] MEDS: SODIUM CHLORIDE FLUSH 0.9% 10 ML SYRINGE IVP PRN (06:26)
[2020-02-17] MEDS ORDERED: ALBUTEROL NEB 2.5 MG/3 ML INH PRN (07:44)
[2020-02-17] MEDS: ENOXAPARIN 40 MG/0.4 ML SYRINGE SUBQ SCH (07:54)
[2020-02-17] MEDS: INSULIN GLARGINE 300 UNIT/3 ML PEN SUBQ SCH (07:55)
[2020-02-17] MEDS: INSULIN ASPART 300 UNIT/3 ML PEN SUBQ SCH ×2 (07:57→11:50)
[2020-02-17] MEDS: NICOTINE 7 MG PATCH TOP SCH (07:57)
--- NOTE | 2020-02-17 08:26 | XRAY Report ---
PROCEDURE: Chest 1 View X-Ray INDICATIONS: sob TECHNIQUE: One view of the chest was acquired. COMPARISON: 02/15/2020 FINDINGS: Surgical changes and devices: None. Lungs and pleura: No pleural effusions or pneumothorax. Lungs demonstrate chronically coarse inters titial markings bilaterally there is slight volume loss in the left lower hemithorax with opacity at the left lateral lung base compared to the prior study. Mediastinum: Mediastinal contours appear normal. Heart size is normal. Bones and chest wall: No suspicious bony lesions. Overlying soft tissues appear unremarkable. IMPRESSION: 1. Slight volume loss and possible opacity left lateral lung base. Consider PA and lateral chest x-ra y when the patient is able. This is likely due to atelectasis. Underlying pneumonia is not excluded. 2. Chronically coarse interstitial markings. Reviewed by: Sandie Pritchett MD on 02/17/2020 8:25 AM PDT Approved by: Sandie Pritchett MD on 02/17/2020 8:25 AM PDT Station ID: [id number]
[2020-02-17] MEDS ORDERED: BUDESONIDE 0.5 MG/2 ML NEB INH SCH ×2 (09:00→19:00)
[2020-02-17] MEDS ORDERED: IPRATROPIUM/ALBUTEROL 3 ML NEB INH SCH ×2 (09:00→11:00)
[2020-02-17 11:18] VITALS: BP 138/97
--- NOTE | 2020-02-17 11:30 | XRAY Report ---
PROCEDURE: Chest 2 View X-Ray INDICATIONS: SOB TECHNIQUE: 2 view(s) of the chest. COMPARISON: Chest radiograph dated 02/17/2020 at 7:46 AM. FINDINGS: Surgical changes and devices: None. Lungs and pleura: No acute airspace opacity is seen. The previously seen possible opacity at the lef t lateral lung base was most likely secondary to atelectasis on the prior exam from earlier the same day. Stable coarse interstitial markings in both lungs. No pleural effusions or pneumothorax. Mediastinum: Mediastinal contours are normal. Heart size is normal. Bones and chest wall: No suspicious bony abnormalities. Soft tissues appear unremarkable. Mild deg enerative changes are seen in the thoracic spine. IMPRESSION: No acute airspace opacity. Stable chronic interstitial markings in both lungs. Reviewed by: Darci Mckeon MD on 02/17/2020 11:29 AM PDT Approved by: Darci Mckeon MD on 02/17/2020 11:29 AM PDT Station ID: [id number]
--- NOTE | 2020-02-17 13:28 | Discharge Plan ---
Discharge Plan Problem Reviewed?: Yes Disposition: Home, Self Care Condition: Stable Prescriptions: Fluticasone/Salmeterol [Advair 500-50 Diskus] 1 each IH BID #1 blst.w.dev predniSONE [Deltasone] 20 mg PO [id number] #21 tab metFORMIN [Glucophage] 500 mg PO BIDWM #30 tablet Albuterol Sulfate [Proair Hfa Inhaler] 1 puffs INH Q4H PRN #17 gm PRN Reason: Wheezing Diet: Diabetic Activity Restrictions: Activity as Tolerated Shower Restrictions: No (fall precaution) Instruction Topics: Metformin tablets, ED Hyperglycemia New Susp Diabetes, Diabetes Care Parents Nb Inf Td, ED Hypoglycemic Reaction Nb, Prednisone tablets, Oxygen Home Use, Oxygen Home Dc Health Concerns: new diagnosis of diabetes, home oxygen usage Plan of Treatment: You were found to have A1C 7.1. RN medical educator was consulted with you, advise you follow the instruction. you are prescribed Metformin, advise you followup with your PCP to continue management of your new diagnosis of diabetes. RT did desat study with you, you are qualified to have home oxygen. advise you followup with RT instruction and safely use Oxygen at home. advise you quit cigarette smoking. You are also prescribed your home breathing treatment meds per your request. Care Goals: stabilization and improvement of your medical conditions. Assessment: discussed with you about the care plan, you understood and agreed. Additional Instructions or Follow Up instructions: You may followup with your PCP in one week, followup with automotive teacher as out- pt. Should your symptoms return or worsen, you may present ER or call 911 for help. Follow-Up Care: [facility] - Pulmonary No Smoking: If you smoke, Please STOP! Call for help.
--- NOTE | 2020-02-17 13:39 | DISCHARGE SUMMARY ---
Discharge Summary Admit Date: 02/15/20 Discharge Date: 02/17/20 Discharging Provider: Shorty Munoz Condition at Discharge: Stable Discharge Disposition: 01 Home, Self Care Discharge Facility Name: home - DIAGNOSES Discharge Diagnoses with Status of Each Condition: (1) Acute respiratory failure with hypoxia Stable and resolve, patient report she feels much better, and no acute respiratory distress, and she request to be discharged to home today. she has 92 % sat on 1 liter of O2. Covid 19 test is negative. (2) COPD exacerbation stable and controlled. pt state she did not have Proair and Advair in home and ask to have new prescription. pt is prescribed Prednisone weaning dosage. Patient was not hypoxia at rest, with oxygen sats of 98% on room air. With exertion on room air, patient's oxygen sats was 86% On 2 L p.m. nasal cannula with exertion, her O2 sats improved to over 90% I am ordering home oxygen, room air at rest and 2 LPM nasal cannula with any exertion to treat her COPD and hypoxia (3) Tobacco abuse Advised the patient quit cigarette smoking, nicotine patch is prescribed for patient. (4)diabetes Patient's A1c is 7.1. pt is the diagnosis of diabetic. Patient had hyperglycemia in the admission. Because this is a new diagnosis diabetic to patient, and A1C is 7.1, patient is a prescription metformin. RN senior health educator was consulted for pt in the hospital. Patient is advised to follow with her PCP to continue to manage her diabetic.Patient also was prescribed of lancet, glucometer and test streps. - HPI History of Present Illness: This is a 54-year-old female with a medical history of COPD, asthma, current smoker, osteoarthritis and chronic pain, who present ER complaint of increasing difficulty breathing over the past 2 to 3 days. She report she have cough and shortness of breath for recently couple of days, but without fever or chilling or chest pain. Patient report She has been out of her albuterol for the last 2 to 3 days. She is still a current smoker. She reported she smoking 1 pack for 3 days now. She states that she does not take any other medications at home. She denies abdominal pain, nausea or vomiting. Initially she was 78% sats on room air. she did not have oxygen at home. Chest x-ray was unremarkable in the ER. Routine laboratory test show unremarkable except slightly increased WBC. Patient is afebrile, with tachycardia and slightly elevated blood pressure and dyspneic with respiration rate 28 and with 88% sats in room air. Patient was admitted to medical floor for further management. Discussed the care goal with the patient, patient request full code. - HOSPITAL COURSE Hospital Course: Patient was admitted for increasing difficulty breathing over the past 2 to 3 days. Patient has history of COPD, patient is continuing current cigarette smoker. Patient also had covid 19 test in the ER. Patient was treated with IV steroid and breathing treatment. Patient was also found to have hyperglycemia in the admission. After treatment patient has no acute respiratory distress. Patient had desaturation of oxygen study in the hospital, it indicated patient needed home oxygen. Patient is prescribed home oxygen and breathing treatment medication, patient stay his home breathing treatment medicine is running out. Patient's A1c tested is 7.1, patient started insulin in the hospital, because this is a first diagnosis of diabetes and the patient's A1c is 7.1, so patient is prescribed metformin. Patient is advised to quit cigarette smoking, advised follow-up with his PCP continue diabetic and COPD management. - ALLERGIES Allergies/Adverse Reactions: Allergies Allergy/AdvReac Type Severity Reaction Status Date / Time No Known Drug Allergies Allergy Verified 03/28/17 22:07 - MEDICATIONS Home Medications: Ambulatory Orders Medication Instructions Recorded Confirmed Albuterol 3 ml INH Q8H PRN 12/09/17 02/15/20 Medical Supply, Miscellaneous 1 each MC DAILY #1 each 12/14/17 [Tablet Cutter] Nicotine 7 mg Patch [Nicoderm] 1 each TOP Q24H #7 patch 12/14/17 02/15/20 Albuterol Sulfate [Proair Hfa 1 puffs INH Q4H PRN #17 gm 02/17/20 Inhaler] Blood Sugar Diagnostic [Glucometer 1 each MC Q6H #100 strip 02/17/20 Strips] Blood-Glucose Meter [Glucometer] 1 each MC Q6H #1 each 02/17/20 Fluticasone/Salmeterol [Advair 1 each IH BID #1 blst.w.dev 02/17/20 500-50 Diskus] Lancets 1 each MC Q6H #100 each 02/17/20 Nicotine 7 mg Patch [Nicoderm] 1 each TOP Q24H #7 patch 02/17/20 metFORMIN [Glucophage] 500 mg PO BIDWM #30 tablet 02/17/20 predniSONE [Deltasone] 20 mg PO [id number] #21 tab 02/17/20 - PHYSICAL EXAM AT DISCHARGE General Appearance: positive: No acute distress, Alert. negative: Lethargic Eyes Bilateral: positive: Normal inspection, PERRL, No lid inflammation ENT: positive: ENT inspection nml, Pharynx nml, No signs of dehydration. negative: Purulent nasal drainage Neck: positive: Nml inspection, Thyroid nml, No JVD, Trachea midline. negative: Thyromegaly, Stiff neck, Tracheal deviation Respiratory: positive: Chest non-tender, No respiratory distress. negative: Rales, Rhonchi Cardiovascular: positive: Regular rate & rhythm, No murmur. negative: Tachycardia, Bradycardia, Systolic murmur, Diastolic murmur Peripheral Pulses: positive: 2+ Abdomen: positive: Non-tender, No organomegaly, Nml bowel sounds, No distention. negative: Tenderness, Guarding, Rebound Back: positive: Nml inspection. negative: CVA tenderness (R), CVA tenderness (L) Skin: positive: Color nml, No rash, Warm, Dry. negative: Cyanosis, Diaphoresis, Pallor Extremities: positive: Non-tender, Full ROM, Nml appearance. negative: Calf tenderness, Danny's sign/cords Neurologic/Psychiatric: positive: Oriented x3, Motor nml, Sensation nml, Mood/affect nml. negative: Weakness, Sensory loss, Facial droop, Slurred/abnml speech, Depressed mood/affect - LABS Result Diagrams: 02/17/20 05:40 02/17/20 05:40 - SEPSIS Current Stage of Sepsis: Ruled out - FOLLOW UP Follow Up: You were found to have A1C 7.1. RN senior health educator was consulted with you, advise you follow the instruction. you are prescribed Metformin, advise you followup with your PCP to continue management of your new diagnosis of diabetes. RT did desat study with you, you are qualified to have home oxygen. advise you followup with RT instruction and safely use Oxygen at home. advise you quit cigarette smoking. You are also prescribed your home breathing treatment meds per your request. You may followup with your PCP in one week, followup with map compiler as out- pt. Should your symptoms return or worsen, you may present ER or call 911 for help.
== END 2020-02-17 14:51 | disposition home or self-care (01) ==
LOC: EDUNIT# → ED 07:44 → MS2 10:31
PROVIDERS: ADMIT Nurse Practitioner Gerontology; ATTEND Nurse Practitioner Gerontology
DX: J96.01 Acute respiratory failure with hypoxia (principal); J44.1 Chronic obstructive pulmonary disease with (acute) exacerbation; F17.210 Nicotine dependence, cigarettes, uncomplicated; E11.65 Type 2 diabetes mellitus with hyperglycemia; R00.0 Tachycardia, unspecified; G89.29 Other chronic pain; M54.9 Dorsalgia, unspecified; Z80.1 Family history of malignant neoplasm of trachea, bronchus and lung; Z83.3 Family history of diabetes mellitus
CPT/HCPCS: 36415; 71045; 71046; 80048; 80053; 81001; 81599; 83690; 83735; 84100; 85025; 87635; 93005; 94150; 94640; 94761; 96372; 96374; 96376; 99285; 99406; A9270; J1650; J1815; 83036; 87086

== ENCOUNTER 2020-07-24 02:10 | Outpatient (CLI) | payer MEDICAID | END 2020-07-24 02:11 | disposition critical access hospital (66) | LOC: EMS 02:10 | PROVIDERS: ATTEND Surgery | DX: R06.00 Dyspnea, unspecified (principal); R05 Cough | CPT/HCPCS: A0425; A0427; A0999 ==

== ENCOUNTER 2020-07-24 02:38 | Emergency (ER) | payer MEDICAID ==
[2020-07-24] MEDS ORDERED: methylPREDNISolone SUCCINATE 125 MG/2 ML VIAL IVP STA (02:56)
[2020-07-24] MEDS ORDERED: ALBUTEROL NEB 2.5 MG/3 ML INH STA ×2 (02:57→03:29)
--- NOTE | 2020-07-24 02:57 | ED Physician Documentation ---
PD HPI DYSPNEA - Stated complaint Stated Complaint: ASTHMA ATTACK - History obtained from History obtained from: Patient, EMS - History of Present Illness Timing - onset: How many hours ago (3-4) Timing - onset during: Rest Timing - details: Gradual onset Pain level max: 0 Pain level now: 0 Inciting event(s): Out of meds (recently ran out of her MDI) Improved by: O2, Inhaler/neb, Epi pen (epinephrine given by EMS), Rest Worsened by: Exertion Associated symptoms: Cough, Wheezing. No: Fever, Chest pain / discomfort, Bilateral edema, Unilateral edema Similar symptoms before: Diagnosis (asthma) - Additional information Additional information: BIBA. Patient c/o 3-4 hours of dyspnea, wheezing. She says this is c/w previous episodes of asthma exacerbation. She says she recently ran out of her albuterol MDI and that she might have a prescription waiting at a pharmacy but isn't sure of this. She does have albuterol nebs and used 2 of these prior to EMS arrival. EMS found patient to have pulse ox 88% room air with bilateral wheezing. They attempted to administer albuterol MDI but patient was unable to take deep enough breaths for this and they thus then gave duoneb and 0.5 ml IM epinephrine, patient improved en route with these measures with respiratory rate decreasing from 45/min to 18 and pulse ox improving to 96% Review of Systems Constitutional: denies: Fever, Chills, Sweats Throat: reports: Sore throat Cardiac: reports: Reviewed and negative Respiratory: reports: Dyspnea, Cough, Wheezing. 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 : None HEENT: None Musculoskeletal: Osteoarthritis, Chronic back pain Derm: None - Past Surgical History Past Surgical History: Yes /ORACLE APPLICATIONS DEVELOPER: Oophrectomy - Present Medications Home Medications: Ambulatory Orders Medication Instructions Recorded Confirmed Albuterol 1 amp INH Q3HR PRN 07/24/20 07/24/20 Albuterol Sulfate [Proair Hfa 1 - 2 puffs INH Q4H PRN #1 inhaler 07/24/20 Inhaler] Albuterol Sulfate [Proair 2 puffs INH Q4HR PRN 07/24/20 07/24/20 Respiclick] predniSONE [Deltasone] 40 mg PO DAILY 4 Days #8 tablet 07/24/20 - Allergies Allergies/Adverse Reactions: Allergies Allergy/AdvReac Type Severity Reaction Status Date / Time No Known Drug Allergies Allergy Verified 03/28/17 22:07 - Social History Does the pt smoke?: Yes Smoking Status: Current every day smoker Does the pt drink ETOH?: No Does the pt have substance abuse?: No - Immunizations Immunizations are current?: No Immunizations: TDAP >10years/unknown - POLST Patient has POLST: No POLST Status: Full Code PD ED PE NORMAL - Vitals Vital signs reviewed: Yes (0) - General General: Alert and oriented X 3, No acute distress, Well developed/nourished - Cardiac Cardiac: No murmur - Abdomen Abdomen: Soft, Non tender - Derm Derm: Normal color, Warm and dry - Extremities Extremities: No edema PD ED PE EXPANDED - Cardiac Cardiac: Tachy, Regular Rhythm - Respiratory Respiratory: Wheezing (diffuse inspiratory and expiratory wheezing), Decreased breath sounds Results - Vitals Vitals: Vital Signs - 24 hr 07/24/20 07/24/20 07/24/20 02:52 03:21 03:32 Temperature 36.9 C Heart Rate 130 H 120 H 131 H Respiratory 18 24 20 Rate Blood Pressure 141/81 H O2 Saturation 89 L 07/24/20 07/24/20 04:57 05:17 Temperature 36.5 C Heart Rate 118 H 109 H Respiratory 20 20 Rate Blood Pressure 160/86 H 145/81 H O2 Saturation 93 93 Oxygen O2 Source Nasal cannula Oxygen Flow Rate 2 - Labs Labs: Laboratory Tests 07/24/20 07/24/20 07/24/20 02:49 03:27 03:27 WBC 14.1 H RBC 4.78 Hgb 14.5 Hct 46.4 MCV 97.1 MCH 30.3 MCHC 31.3 L RDW 13.0 Plt Count 320 MPV 9.7 Neut # (Auto) 12.4 H Lymph # (Auto) 0.8 L [place] # (Auto) 0.8 Eos # (Auto) 0.0 Baso # (Auto) 0.1 Absolute Nucleated RBC 0.00 Nucleated RBC % 0.0 Sodium 137 Potassium 4.3 Chloride 101 Carbon Dioxide 27 Anion Gap 9.0 BUN 8 Creatinine 0.7 Estimated GFR (MDRD) 87 L Glucose 200 H Calcium 9.1 Nasal Adenovirus (PCR) NOT DETECTED Nasal B. parapertussis DNA (PCR) NOT DETECTED Nasal Coronavir 229E PCR NOT DETECTED Nasal Coronavir HKU1 PCR NOT DETECTED Nasal Coronavir NL63 PCR NOT DETECTED Nasal Coronavir OC43 PCR NOT DETECTED Nasal Enterovir/Rhinovir PCR DETECTED A Nasal Influenza B PCR NOT DETECTED Nasal Influenza A PCR NOT DETECTED Nasal Parainfluen 1 PCR NOT DETECTED Nasal Parainfluen 2 PCR NOT DETECTED Nasal Parainfluen 3 PCR NOT DETECTED Nasal Parainfluen 4 PCR NOT DETECTED Nasal RSV (PCR) NOT DETECTED Nasal B.pertussis DNA PCR NOT DETECTED Nasal C.pneumoniae (PCR) NOT DETECTED [place] Human Metapneumo PCR NOT DETECTED Nasal M.pneumoniae (PCR) NOT DETECTED Nasal SARS-CoV-2 (PCR) NOT DETECTED - Rads (name of study) chest xray Radiology: Prelim report reviewed, See rad report PD MEDICAL DECISION MAKING - ED course Complexity details: reviewed old records, reviewed results, re-evaluated patient, considered differential, d/w patient ED course: given 125mg solu-medrol and albuterol neb x 2 in ED; she steadily improved dur ing ED stay with these measures, reassuring test results. On reevaluation prior to d/c, she is asleep and easily awakens to verbal, reports feeling much improved and comfortable with d/c home. pulse ox 93-94% RA when asleep, improves to 95-96% RA when awake. Auscultation of lungs on reexam reveals good air movement bilaterally with trace end-expiratory wheezing Departure - Departure Disposition: 01 Home, Self Care Clinical Impression: Asthma exacerbation Qualifiers: Asthma severity: unspecified severity Asthma persistence: intermittent Qualified Code(s): J45.21 - Mild intermittent asthma with (acute) exacerbation Condition: Good Instructions: ALBUTEROL Oral Inhaler, ED Reactive Airway Disease Prescriptions: predniSONE [Deltasone] 40 mg PO DAILY 4 Days #8 tablet Albuterol Sulfate [Proair Hfa Inhaler] 1 - 2 puffs INH Q4H PRN #1 inhaler PRN Reason: Shortness Of Air/Wheezing Discharge Date/Time: 07/24/20 05:55
[2020-07-24 03:36] LABS: BASOPHILS # (AUTO) 0.1 10^3/uL (0.0-0.1); BASOPHILS % (AUTO) 0.6 %; EOSINOPHILS % (AUTO) 0.3 %; HCT - HEMATOCRIT 46.4 % (37.0-47.0); HGB - HEMOGLOBIN 14.5 g/dL (12.0-16.0); LYMPHOCYTES # (AUTO) 0.8 10^3/uL (1.5-3.5); LYMPHOCYTES % (AUTO) 5.6 %; MEAN CORPUSCULAR HEMOGLOBIN 30.3 pg (27.0-31.0); MEAN CORPUSCULAR HGB CONC 31.3 g/dL (32.0-36.0); MEAN CORPUSCULAR VOLUME 97.1 fL (81.0-99.0); MEAN PLATELET VOLUME 9.7 fL (7.9-10.8); MONOCYTES # (AUTO) 0.8 10^3/uL (0.0-1.0); MONOCYTES % (AUTO) 5.4 %; NEUTROPHILS # (AUTO) 12.4 10^3/uL (1.5-6.6); NEUTROPHILS % (AUTO) 87.8 %; PLT - PLATELET COUNT 320 10^3/uL (130-450); RED BLOOD COUNT 4.78 10^6/uL (4.20-5.40); WHITE BLOOD COUNT 14.1 x10^3/uL (4.8-10.8)
[2020-07-24 03:41] LABS: CALCIUM 9.1 mg/dL (8.5-10.3); CREATININE 0.7 mg/dL (0.4-1.0); POTASSIUM 4.3 mmol/L (3.5-5.0)
[2020-07-24 04:25] LABS: B. PARAPERTUSSIS- RESP PCR PAN NOT DETECTED; B. PERTUSSIS- RESP PCR PANEL NOT DETECTED; C. PNEUMONIAE- RESP PCR PANEL NOT DETECTED; CORONAVIRUS 229E-RESP PCR NOT DETECTED; CORONAVIRUS HKU1-RESP PCR NOT DETECTED; CORONAVIRUS NL63-RESP PCR NOT DETECTED; CORONAVIRUS OC43-RESP PCR NOT DETECTED; HUMAN METAPNEUMOVIRUS NOT DETECTED; INFLUENZA A- RESP PCR PANEL NOT DETECTED; INFLUENZA B - RESP PCR PANEL NOT DETECTED; M. PNEUMONIAE- RESP PCR PANEL NOT DETECTED; PARAINFLUENZA VIRUS 1 NOT DETECTED; PARAINFLUENZA VIRUS 2 NOT DETECTED; PARAINFLUENZA VIRUS 3 NOT DETECTED; PARAINFLUENZA VIRUS 4 NOT DETECTED; RHINOVIRUS/ENTEROVIRUS DETECTED; RSV- RESP PCR PANEL NOT DETECTED; SARS-CoV-2 -RESP PCR PANEL NOT DETECTED
[2020-07-24 05:18] VITALS: BP 145/81
--- NOTE | 2020-07-24 08:42 | XRAY Report ---
PROCEDURE: Chest 2 View X-Ray INDICATIONS: dyspnea TECHNIQUE: 2 view(s) of the chest. COMPARISON: Prior chest plain films 02/17/2020 and 02/15/2020.. FINDINGS: Surgical changes and devices: None. Lungs and pleura: No pleural effusions or pneumothorax. Lungs are abnormal, with a subtle but defin ite increase in alveolar markings at the right mid and lower lung, this slightly blurs the right card iac margin, and adjacent pulmonary vasculature. The appearance is suggestive of a early pneumonia in that area.. Mediastinum: Mediastinal contours are normal. Heart size is normal. Bones and chest wall: No suspicious bony abnormalities. Soft tissues appear unremarkable. IMPRESSION: Suspected mild or early pneumonia right mid and lower lung medially. No definite left-si ded lung abnormality. The finding is relatively subtle, and follow-up 2 view chest would be helpful i n confirming presence or absence of new airspace disease on the right. Reviewed by: Agustin Nascimento MD on 07/24/2020 8:40 AM [facility] Approved by: Agustin Nascimento MD on 07/24/2020 8:40 AM PST Station ID: [id number]
== END 2020-07-24 05:55 | disposition home or self-care (01) ==
LOC: EDUNIT# → ED 02:38
DX: J45.21 Mild intermittent asthma with (acute) exacerbation (principal); F17.200 Nicotine dependence, unspecified, uncomplicated; Z20.828 Contact with and (suspected) exposure to other viral communicable diseases
CPT/HCPCS: 0202U; 36415; 71046; 80048; 85025; 94640; 96374; 99284

== ENCOUNTER 2020-10-04 08:27 | Outpatient (CLI) | payer MEDICAID ==
[2020-10-04 13:56] LABS: BASOPHILS # (AUTO) 0.1 10^3/uL (0.0-0.1); BASOPHILS % (AUTO) 0.9 %; EOSINOPHILS # (AUTO) 0.2 10^3/uL (0.0-0.7); HCT - HEMATOCRIT 44.5 % (37.0-47.0); LYMPHOCYTES # (AUTO) 2.9 10^3/uL (1.5-3.5); LYMPHOCYTES % (AUTO) 35.2 %; MEAN CORPUSCULAR HEMOGLOBIN 29.7 pg (27.0-31.0); MEAN CORPUSCULAR HGB CONC 31.5 g/dL (32.0-36.0); MEAN CORPUSCULAR VOLUME 94.5 fL (81.0-99.0); MEAN PLATELET VOLUME 10.4 fL (7.9-10.8); MONOCYTES # (AUTO) 0.6 10^3/uL (0.0-1.0); MONOCYTES % (AUTO) 7.8 %; NEUTROPHILS # (AUTO) 4.4 10^3/uL (1.5-6.6); PLT - PLATELET COUNT 344 10^3/uL (130-450); RED BLOOD COUNT 4.71 10^6/uL (4.20-5.40); RED CELL DISTRIBUTION WIDTH 13.2 % (12.0-15.0); WHITE BLOOD COUNT 8.1 x10^3/uL (4.8-10.8)
[2020-10-04 14:12] LABS: ESTIMATED AVERAGE GLUCOSE 160 mg/dL (70-100); HEMOGLOBIN A1c% 7.2 % (4.27-6.07)
[2020-10-04 14:18] LABS: THYROID STIMULATING HORMONE 1.46 uIU/mL (0.34-5.60)
[2020-10-04 14:40] LABS: ALBUMIN 4.2 g/dL (3.2-5.5); ALBUMIN/GLOBULIN RATIO 1.7 (1.0-2.2); ALKALINE PHOSPHATASE 76 IU/L (42-121); ALT ALANINE AMINOTRANSFERASE 21 IU/L (10-60); AST ASPARTATE AMINOTRANSFERASE 17 IU/L (10-42); BUN - BLOOD UREA NITROGEN 12 mg/dL (6-20); CALCIUM 9.4 mg/dL (8.5-10.3); CARBON DIOXIDE - CO2 26 mmol/L (21-32); CHLORIDE 102 mmol/L (101-111); CHOL/HDL RATIO 3.2 (<4.4); CHOLESTEROL 186 mg/dL; CREATININE 0.6 mg/dL (0.4-1.0); GFR - MDRD 104 (>89); GLUCOSE 143 mg/dL (70-100); HDL CHOLESTEROL 59 mg/dL; LDL CHOLESTEROL,CALCULATED 111 mg/dL; LDL/HDL RATIO 1.9 (<4.4); POTASSIUM 4.1 mmol/L (3.5-5.0); SODIUM 137 mmol/L (135-145); TOTAL PROTEIN 6.7 g/dL (6.7-8.2); TRIGLYCERIDES 80 mg/dL; VLDL CHOLESTEROL 16 mg/dL
[2020-10-04 14:50] LABS: CREATININE,URINE 123.8 mg/dL; MICROALBUM/CREATININE RATIO,UR 2.4 ug/mg (<30.0); MICROALBUMIN,URINE 0.3 mg/dL (0-300.0)
== END 2020-10-04 23:59 | disposition home or self-care (01) ==
LOC: LAB.WCP 08:27
PROVIDERS: ATTEND Physician Assistant Medical
DX: Z00.00 Encounter for general adult medical examination without abnormal findings (principal); E11.9 Type 2 diabetes mellitus without complications
CPT/HCPCS: 36415; 80053; 80061; 82043; 82570; 83036; 83721; 84443; 85025

== ENCOUNTER 2022-11-18 13:22 | Outpatient (CLI) | payer MEDICAID ==
[2022-11-18 18:11] LABS: CALCIUM 9.5 mg/dL (8.5-10.3); CREATININE 0.8 mg/dL (0.4-1.0); POTASSIUM 4.5 mmol/L (3.5-5.0)
[2022-11-18 20:57] LABS: ESTIMATED AVERAGE GLUCOSE 163 mg/dL (70-100); HEMOGLOBIN A1c% 7.3 % (4.27-6.07)
== END 2022-11-18 13:23 | disposition home or self-care (01) ==
LOC: LAB.N 13:22
PROVIDERS: ATTEND Physician Assistant Medical
DX: E11.9 Type 2 diabetes mellitus without complications (principal)
CPT/HCPCS: 36415; 80048; 83036

== ENCOUNTER 2023-03-15 08:30 | Outpatient (CLI) | payer MEDICAID | END 2023-03-15 08:31 | disposition critical access hospital (66) | LOC: EMS 08:30 | DX: J45.901 Unspecified asthma with (acute) exacerbation (principal) | CPT/HCPCS: A0425; A0427; A0999 ==

== ENCOUNTER 2023-03-15 09:01 | Emergency (ER) | payer MEDICAID ==
[2023-03-15] MEDS ORDERED: IPRATROPIUM/ALBUTEROL 3 ML NEB INH STA (09:10)
[2023-03-15 09:29] LABS: BASOPHILS # (AUTO) 0.1 10^3/uL (0.0-0.1); BASOPHILS % (AUTO) 0.6 %; EOSINOPHILS # (AUTO) 0.1 10^3/uL (0.0-0.7); EOSINOPHILS % (AUTO) 0.6 %; HCT - HEMATOCRIT 43.3 % (37.0-47.0); HGB - HEMOGLOBIN 13.3 g/dL (12.0-16.0); LYMPHOCYTES # (AUTO) 2.7 10^3/uL (1.5-3.5); LYMPHOCYTES % (AUTO) 15.8 %; MEAN CORPUSCULAR HEMOGLOBIN 29.1 pg (27.0-31.0); MEAN CORPUSCULAR HGB CONC 30.7 g/dL (32.0-36.0); MEAN CORPUSCULAR VOLUME 94.7 fL (81.0-99.0); MONOCYTES % (AUTO) 5.7 %; NEUTROPHILS # (AUTO) 13.2 10^3/uL (1.5-6.6); NEUTROPHILS % (AUTO) 76.9 %; PLT - PLATELET COUNT 324 10^3/uL (130-450); RED BLOOD COUNT 4.57 10^6/uL (4.20-5.40); RED CELL DISTRIBUTION WIDTH 13.7 % (12.0-15.0); WHITE BLOOD COUNT 17.1 x10^3/uL (4.8-10.8)
[2023-03-15 09:44] LABS: CALCIUM 9.3 mg/dL (8.5-10.3); CREATININE 0.7 mg/dL (0.6-1.3)
--- NOTE | 2023-03-15 10:04 | XRAY Report ---
PROCEDURE: Chest 1 View X-Ray INDICATIONS: SOA TECHNIQUE: One view of the chest was acquired. COMPARISON: 07/24/2020 FINDINGS: Surgical changes and devices: None. Lungs and pleura: No pleural effusions or pneumothorax. Lungs are clear. Mediastinum: Mediastinal contours appear normal. Heart size is normal. Bones and chest wall: No suspicious bony lesions. Overlying soft tissues appear unremarkable. IMPRESSION: No acute cardiopulmonary process. Reviewed by: Eliseo Webb MD on 03/15/2023 9:03 AM [facility] Approved by: Eliseo Webb MD on 03/15/2023 9:03 AM [facility] Station ID: [id number]
--- NOTE | 2023-03-15 10:10 | ED Physician Documentation ---
PD HPI DYSPNEA - Stated complaint Stated Complaint: SOA - Chief complaint Chief Complaint: Resp - History obtained from History obtained from: Patient, EMS - Additional information Additional information: Patient is a 57-year-old female with a history of asthma presenting for evaluation of feeling short of air since this morning. Patient reports having a slight nonproductive cough since this morning. She does have home oxygen to use as needed but was not using it this morning. EMS reports that her room air saturations were in the 90s. They administered 1 DuoNeb and 125 of IV Solu- Medrol with some improvement in her symptoms. Patient denies any fever. She denies chest pain. She denies abdominal symptoms. 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: Oophrectomy - Present Medications Home Medications: Ambulatory Orders Medication Instructions Recorded Confirmed Albuterol Sulfate [Proair 2 puffs INH Q4HR PRN 07/24/20 03/15/23 Respiclick] Azithromycin [Zithromax] 1 tab PO DAILY #4 tab 03/15/23 Fluticasone/Salmeterol [Advair 1 puffs PO BID 03/15/23 03/15/23 250-50 Diskus] predniSONE [Deltasone] 60 mg PO DAILY 5 Days #15 tablet 03/15/23 - Allergies Allergies/Adverse Reactions: Allergies Allergy/AdvReac Type Severity Reaction Status Date / Time No Known Drug Allergies Allergy Verified 03/15/23 10:43 - Social History Does the pt smoke?: Yes Smoking Status: Current every day smoker Does the pt drink ETOH?: No Does the pt have substance abuse?: No - Immunizations Immunizations are current?: No Immunizations: TDAP >10years/unknown - POLST Patient has POLST: No POLST Status: Full Code PD ED PE NORMAL - General General: Alert and oriented X 3, No acute distress, Well developed/nourished - HEENT HEENT: Atraumatic - Neck Neck: Supple, no meningeal sign - Cardiac Cardiac: RRR, No murmur - Respiratory Respiratory: No respiratory distress, Other (Diffuse wheezing) - Abdomen Abdomen: Soft, Non tender - Extremities Extremities: No calf tenderness / cord - Neuro Neuro: Normal speech Results - Vitals Vitals: Vital Signs - 24 hr 03/15/23 03/15/23 03/15/23 09:09 09:14 09:36 Temperature 36.6 C Heart Rate 95 100 Respiratory 24 20 Rate Blood Pressure 126/74 O2 Saturation 90 L 87 L If not protocol : Oxygen Flow, liters/minute 03/15/23 03/15/23 10:00 12:00 Temperature Heart Rate 91 98 Respiratory 18 18 Rate Blood Pressure 132/78 H 121/74 O2 Saturation 97 96 If not protocol 3 3 : Oxygen Flow, liters/minute Oxygen O2 Source Nasal cannula Oxygen Flow Rate 3 - EKG (time done) 0913 EKG releavant findings:: EKG personally interpreted by author of this note. Relevant findings are: Rate 90, normal sinus rhythm, no STEMI Rate: Rate (enter#) (90) Rhythm: NSR Intervals: No: Prolonged QT Ischemia: No: ST elevation c/w ischemia - Labs Labs: Laboratory Tests 03/15/23 03/15/23 03/15/23 09:13 09:24 09:24 WBC 17.1 H RBC 4.57 Hgb 13.3 Hct 43.3 MCV 94.7 MCH 29.1 MCHC 30.7 L RDW 13.7 Plt Count 324 MPV 10.0 Neut # (Auto) 13.2 H Lymph # (Auto) 2.7 [place] # (Auto) 1.0 Eos # (Auto) 0.1 Baso # (Auto) 0.1 Absolute Nucleated RBC 0.00 Nucleated RBC % 0.0 Bld Gas Analysis Time Sample Site ABG pH ABG pCO2 ABG pO2 ABG HCO3 ABG Total CO2 ABG O2 Saturation ABG Base Excess Eric Test O2 Delivery Device O2 Liters/Min Sodium 138 Potassium 4.0 Chloride 104 Carbon Dioxide 28 Anion Gap 6.0 BUN 12 Creatinine 0.7 Estimated GFR (MDRD) 86 L Glucose 195 H Calcium 9.3 Nasal Adenovirus (PCR) NOT DETECTED Nasal B. parapertussis DNA (PCR) NOT DETECTED Nasal Coronavir 229E PCR NOT DETECTED Nasal Coronavir HKU1 PCR NOT DETECTED Nasal Coronavir NL63 PCR NOT DETECTED Nasal Coronavir OC43 PCR NOT DETECTED Nasal Enterovir/Rhinovir PCR NOT DETECTED Nasal Influenza B PCR NOT DETECTED Nasal Influenza A PCR NOT DETECTED Nasal Parainfluen 1 PCR NOT DETECTED Nasal Parainfluen 2 PCR NOT DETECTED Nasal Parainfluen 3 PCR NOT DETECTED Nasal Parainfluen 4 PCR NOT DETECTED Nasal RSV (PCR) NOT DETECTED Nasal B.pertussis DNA PCR NOT DETECTED Nasal C.pneumoniae (PCR) NOT DETECTED [place] Human Metapneumo PCR NOT DETECTED Nasal M.pneumoniae (PCR) NOT DETECTED Nasal SARS-CoV-2 (PCR) NOT DETECTED 03/15/23 10:20 WBC RBC Hgb Hct MCV MCH MCHC RDW Plt Count MPV Neut # (Auto) Lymph # (Auto) [place] # (Auto) Eos # (Auto) Baso # (Auto) Absolute Nucleated RBC Nucleated RBC % Bld Gas Analysis Time 1029 Sample Site RIGHT RADIAL ABG pH 7.33 L ABG pCO2 45 ABG pO2 72 L ABG HCO3 23.2 ABG Total CO2 24.6 ABG O2 Saturation 94 ABG Base Excess -2.9 L Eric Test POSITIVE O2 Delivery Device NASAL CANNULA O2 Liters/Min 3.00 Sodium Potassium Chloride Carbon Dioxide Anion Gap BUN Creatinine Estimated GFR (MDRD) Glucose Calcium Nasal Adenovirus (PCR) Nasal B. parapertussis DNA (PCR) Nasal Coronavir 229E PCR Nasal Coronavir HKU1 PCR Nasal Coronavir NL63 PCR Nasal Coronavir OC43 PCR Nasal Enterovir/Rhinovir PCR Nasal Influenza B PCR Nasal Influenza A PCR Nasal Parainfluen 1 PCR Nasal Parainfluen 2 PCR Nasal Parainfluen 3 PCR Nasal Parainfluen 4 PCR Nasal RSV (PCR) Nasal B.pertussis DNA PCR Nasal C.pneumoniae (PCR) [place] Human Metapneumo PCR Nasal M.pneumoniae (PCR) Nasal SARS-CoV-2 (PCR) PD Medical Decision Making - ED course Complexity details: reviewed results, re-evaluated patient, d/w patient ED course: Patient is a 57-year-old female with a history of asthma and COPD presenting for evaluation of shortness of air since this morning. She does have oxygen available to her at home to use as needed. She is requiring a few liters here. She did have improvement with a neb treatment here. She already received IV Solu-Medrol from EMS. CBC reviewed with mild leukocytosis of 17,000. No significant findings on chemistry. Chest x-ray which I reviewed is clear without signs of pneumonia or effusion. Respiratory swab is negative. Patient is feeling better here. ABG also reviewed and patient does not appear to be decompensated. She does continue to smoke cigarettes and was counseled to try to stop. We also reviewed a treatment plan to continue with p.o. steroids, neb treatments, p.o. antibiotics given her history of COPD. Patient counseled on concerning symptoms to return for. Departure - Departure Disposition: Home, Self Care Clinical Impression: Asthma exacerbation Condition: Stable Instructions: ED Bronchitis Asthmatic Follow-Up: Nayana Longoria PA-C [Primary Care Provider] - Prescriptions: predniSONE [Deltasone] 60 mg PO DAILY 5 Days #15 tablet Azithromycin [Zithromax] 1 tab PO DAILY #4 tab Comments: You were treated for an asthma exacerbation. Your COVID test was negative today. Your x-ray also did not show signs of pneumonia. I have sent prescriptions for steroids as well as an antibiotic to [facility] in [place]. Please use your nebulizer and oxygen at home as needed. If you develop any worsening symptoms such as increased trouble breathing then please return to the emergency department. Forms: PCP List Discharge Date/Time: 03/15/23 12:22
[2023-03-15 10:19] LABS: B. PARAPERTUSSIS- RESP PCR PAN NOT DETECTED; B. PERTUSSIS- RESP PCR PANEL NOT DETECTED; C. PNEUMONIAE- RESP PCR PANEL NOT DETECTED; CORONAVIRUS 229E-RESP PCR NOT DETECTED; CORONAVIRUS HKU1-RESP PCR NOT DETECTED; CORONAVIRUS NL63-RESP PCR NOT DETECTED; CORONAVIRUS OC43-RESP PCR NOT DETECTED; HUMAN METAPNEUMOVIRUS NOT DETECTED; INFLUENZA A- RESP PCR PANEL NOT DETECTED; INFLUENZA B - RESP PCR PANEL NOT DETECTED; M. PNEUMONIAE- RESP PCR PANEL NOT DETECTED; PARAINFLUENZA VIRUS 1 NOT DETECTED; PARAINFLUENZA VIRUS 2 NOT DETECTED; PARAINFLUENZA VIRUS 3 NOT DETECTED; PARAINFLUENZA VIRUS 4 NOT DETECTED; RHINOVIRUS/ENTEROVIRUS NOT DETECTED; RSV- RESP PCR PANEL NOT DETECTED; SARS-CoV-2 -RESP PCR PANEL NOT DETECTED
[2023-03-15 10:28] LABS: ABG PCO2 45 mmHg (34-45); ABG PH 7.33 (7.35-7.45); ABG PO2 72 mmHg (80-100)
[2023-03-15 10:29] LABS: ABG BASE EXCESS -2.9 mmol/L (-2.0-3.0); ABG HCO3 23.2 mmol/L (22.0-26.0); ABG OXYGEN SATURATION 94 % (94-98); ABG TCO2 24.6 MMOL/L (21.0-29.0); ALLEN TEST POSITIVE
[2023-03-15] MEDS ORDERED: AZITHROMYCIN 250 MG TABLET PO STA (10:34)
[2023-03-15 12:15] VITALS: BP 121/74; O2SAT 96
== END 2023-03-15 12:22 | disposition home or self-care (01) ==
LOC: EDUNIT# → ED 09:01
DX: J45.901 Unspecified asthma with (acute) exacerbation (principal); F17.200 Nicotine dependence, unspecified, uncomplicated; Z20.822 Contact with and (suspected) exposure to COVID-19
CPT/HCPCS: 36415; 36600; 71045; 80048; 82803; 85025; 87633; 93005; 94640; 99284; A9270

== ENCOUNTER 2023-08-28 13:36 | Emergency (ER) | payer MEDICAID ==
[2023-08-28 13:48] VITALS: O2SAT 98
--- NOTE | 2023-08-28 15:24 | Ultrasound Report ---
PROCEDURE: Duplex Ext Veins Right INDICATIONS: pain TECHNIQUE: Real-time imaging, as well as color and pulse Doppler interrogation, were performed of th e lower extremity deep veins from the inguinal ligament to the popliteal fossa. Attempted visualizati on of the calf veins was performed. COMPARISON: None. FINDINGS: The deep veins are normally compressible, and free of intraluminal thrombus. Color and pu lse Doppler demonstrate normal phasic intraluminal flow. There is normal augmentation response to di stal compression maneuver. IMPRESSION: No deep venous thrombosis of the visualized lower extremity. Reviewed by: Eliseo Webb MD on 08/28/2023 2:23 PM [facility] Approved by: Eliseo Webb MD on 08/28/2023 2:23 PM [facility] Station ID: [id number]
--- NOTE | 2023-08-28 17:05 | ED Physician Documentation ---
PD HPI LOWER EXT INJURY - Stated complaint Stated Complaint: RT LEG SWELLING - Chief complaint Chief Complaint: Ext Problem - History obtained from History obtained from: Patient - History of Present Illness PD HPI LOW EXT INJURY LOCATION: Right, Lower leg (anterior aspect. had injury to anterior lower leg with swelling and some redness/bruising. Has more redness to area now. No noted skin lesions. no drainage. Increased redness/warmth today.) Type of injury: Blunt / blow Timing - onset: How many days ago (2) Timing - details: Abrupt onset, Still present, Still present in ED Worsened by: Palpating Associated symptoms: Swelling, Discolored (some redness and slight purple anteriorly.). No: Weakness, Numbness Similar symptoms before: Has not had sx before Recently seen: Clinic (went to Walk [facility] and eval with directed to ER for cocnern of DVT. 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 - Present Medications Home Medications: Ambulatory Orders Medication Instructions Recorded Confirmed Albuterol Sulfate [Proair 2 puffs INH Q4HR PRN 07/24/20 03/15/23 Respiclick] Azithromycin [Zithromax] 1 tab PO DAILY #4 tab 03/15/23 Fluticasone/Salmeterol [Advair 1 puffs PO BID 03/15/23 03/15/23 250-50 Diskus] predniSONE [Deltasone] 60 mg PO DAILY 5 Days #15 tablet 03/15/23 HYDROcod/ACETAM 5/325 [[place] 5/325] 1 ea PO Q6H PRN #15 tablet 08/28/23 cephALEXin [Keflex] 500 mg PO TID #20 cap 08/28/23 - Allergies Allergies/Adverse Reactions: Allergies Allergy/AdvReac Type Severity Reaction Status Date / Time No Known Drug Allergies Allergy Verified 08/28/23 13:42 - Social History Does the pt smoke?: Yes Smoking Status: Current every day smoker Does the pt drink ETOH?: No Does the pt have substance abuse?: No - Immunizations Immunizations are current?: No Immunizations: TDAP >10years/unknown - POLST Patient has POLST: No POLST Status: Full Code PD ED PE NORMAL - Vitals Vital signs reviewed: Yes - General General: Alert and oriented X 3, No acute distress, Well developed/nourished - Respiratory Respiratory: No respiratory distress, Clear bilaterally - Derm Derm: Normal color, Warm and dry - Extremities Extremities: Other (lower aspect anterior lower leg with swelling, redness, wamrth. No skin lesions. Tender. Not tender in calf/posterior aspect nor at popliteal. ) - Neuro Neuro: Alert and oriented X 3, No motor deficit, No sensory deficit, Normal speech Results - Vitals Vitals: Oxygen O2 Source Room air - Rads (name of study) duplex US left leg. Relevant Findings:: Prelim report reviewed, EMP independent interpretation of test, Other (US tech: no DVT. ) PD Medical Decision Making - ED course Complexity details: re-evaluated patient (clinically seems like soft tissue brisusing, with consideration of red/warmth from bruising inflammation vs some cellulitis, though no skin lesions per se. Does not seem like calf DVT. was sent for US with concern for that.), considered differential (has swelling/tender with some redness/warmth in anterior lower leg at site of injury. Calf not tender itself. anterior tissue has tender/swelling. ), d/w patient Departure - Departure Disposition: 01 Home, Self Care Clinical Impression: Contusion of right lower leg, Swelling of lower leg, Cellulitis Clinical Impression: (Ruled Out): Deep vein thrombosis Condition: Stable Record reviewed to determine appropriate education?: Yes Follow-Up: aNyana Longoria PA-C [Primary Care Provider] - Prescriptions: cephALEXin [Keflex] 500 mg PO TID #20 cap HYDROcod/ACETAM 5/325 [[place] 5/325] 1 ea PO Q6H PRN #15 tablet PRN Reason: Pain Comments: Your ultrasound was negative for any blood clots. You do have the swelling there at the injury location and the warmth and discoloration may be just bruising. Concern would be for possible skin infection that would have the similar symptoms. We can treat it with cephalexin as prescribed for concern of infection. Regarding the swelling in bruising component, continue with elevation and Tyson wrap etc. Continue with the ibuprofen 3 times daily. Add Tylenol 4 times a day if needed for pains or hydrocodone if needed for worse pain. I sent your prescriptions to your preferred pharmacy, [email or web address]. Recheck if not improving well over the next several days. Forms: PCP List Discharge Date/Time: 08/28/23 17:58
[2023-08-28] MEDS ORDERED: cephALEXin 250 MG CAPSULE PO STA (17:22)
[2023-08-28 18:01] VITALS: BP 128/67
== END 2023-08-28 17:58 | disposition home or self-care (01) ==
LOC: ED 13:36
DX: S89.91XA Unspecified injury of right lower leg, initial encounter (principal); X58.XXXA Exposure to other specified factors, initial encounter; L03.115 Cellulitis of right lower limb; F17.200 Nicotine dependence, unspecified, uncomplicated
CPT/HCPCS: 93971; 99283; 99284; A9270

== ENCOUNTER 2024-02-01 13:09 | Outpatient (CLI) | payer MEDICAID ==
--- NOTE | 2024-02-01 16:31 | XRAY Report ---
PROCEDURE: Hand 3+V RT INDICATIONS: HAND PAIN, RIGHT TECHNIQUE: 3 views of the hand(s) acquired. COMPARISON: None. FINDINGS: There is angulation of the fifth digit at the PIP and MCP joints. Bones: No fractures or dislocations. No suspicious bony lesions. Soft tissues: No suspicious soft tissue calcifications or masses. IMPRESSION: Angulation of the fifth MCP IP joints without visualized fracture. No visualized acute fracture or di slocation. However, occult injury cannot be excluded. Recommend short interval imaging follow-up in 7 -10 days as clinically indicated for additional evaluation. Reviewed by: Landy Ren MD on 02/01/2024 4:30 PM PDT Approved by: Landy Ren MD on 02/01/2024 4:30 PM PDT Station ID: [id number]
== END 2024-02-01 13:10 | disposition home or self-care (01) ==
LOC: DI.N 13:09
PROVIDERS: ATTEND Physician Assistant Medical
DX: M79.641 Pain in right hand (principal)